=== PATIENT | female | born 1970 | race Caucasian/White ===

== ENCOUNTER → 2017-06-10 09:25 | Outpatient (CLI) | payer OTHER, SELFPAY ==
--- NOTE | 2017-06-10 09:42 | RAD_ITS ---
STUDY: X-RAY - LEFT FOOT CLINICAL: Female, 47 years old. Left foot pain TECHNIQUE: 3 view(s) of the foot. COMPARISON: None. FINDINGS: There is a small plantar calcaneal spur. Normal visualized subtalar, talonavicular, calcaneocuboid, tarsal and tarsometatarsal articulations. Normal metatarsi. Normal metatarsophalangeal joint of the great toe. Normal tibial and fibular sesamoid bones. Normal interphalangeal joint of the great toe. Normal phalanges of the great toe. Normal second through fifth metatarsophalangeal joints. Normal interphalangeal joints and phalanges of the lesser toes. The soft tissue structures are unremarkable. RAD/Foot min 3 Views IMPRESSION: Normal x-ray examination of the foot. Electronically Signed: Juan Antonio Moncada DO at 16:42 EDT Tel , Service support ,
== END ==
PROVIDERS: Family Provider Family Medicine; PCP Family Medicine; Visit Provider Physician Assistant
DX: M79.672 Pain in left foot (principal); S99.922A Unspecified injury of left foot, initial encounter
CPT/HCPCS: 73630

== ENCOUNTER → 2017-06-23 13:09 | Outpatient (CLI) | payer OTHER, SELFPAY ==
--- NOTE | 2017-06-23 13:12 | RAD_ITS ---
STUDY: X-RAY - LEFT FOOT CLINICAL: Female, 47 years old. 2 week history of dorsal foot pain. TECHNIQUE: 3 view(s) of the foot. COMPARISON: None. FINDINGS: There is a plantar calcaneal spur. Normal visualized subtalar, talonavicular, calcaneocuboid, tarsal and tarsometatarsal articulations. Normal metatarsi. Normal metatarsophalangeal joint of the great toe. Normal tibial and fibular sesamoid bones. Normal interphalangeal joint of the great toe. Normal phalanges of the great toe. Normal second through fifth metatarsophalangeal joints. Normal interphalangeal joints and phalanges of the lesser toes. The soft tissue structures are unremarkable. RAD/Foot min 3 Views IMPRESSION: Plantar spur. Electronically Signed: Taiwo Abernathy MD at 15:37 EDT Tel [phone], Service support ,
== END ==
PROVIDERS: Family Provider Family Medicine; PCP Family Medicine; Visit Provider Physician Assistant
DX: M79.672 Pain in left foot (principal)
CPT/HCPCS: 73630

== ENCOUNTER → 2017-07-29 10:59 | Outpatient (CLI) | payer OTHER, SELFPAY ==
--- NOTE | 2017-07-29 11:04 | MRI_ITS ---
STUDY: MRI LEFT FOOT REASON FOR EXAM: Pain for 8 weeks, no specific injury, possible first or second metatarsal stress fracture. TECHNIQUE: Standardized fat and water weighted pulse sequences were obtained in all 3 orthogonal planes. COMPARISON: Radiographs 06/23/2017. FINDINGS: Normal visualized talonavicular articulation. Normal navicular-cuneiform articulations. Normal intercuneiform articulations. Normal first tarsometatarsal articulation. Normal Lisfranc ligament. Normal second and third tarsometatarsal articulations. Normal cuboid fourth and cuboid fifth tarsometatarsal articulation. Normal first through fifth metatarsi. Normal metatarsophalangeal joints. Normal phalanges and interphalangeal joints. Normal extensor hallucis longus tendon. Normal extensor digitorum longus tendons. Normal peroneus longus tendon distal insertion. Normal peroneus brevis tendon distal insertion. Normal intrinsic muscles of the visualized mid and forefoot region. Normal intermetatarsal spaces. There is mild edema in the dorsal lateral subcutis adipose space of the proximal forefoot. MRI/Lower Ext/No Jt/w/o IMPRESSION: Mild edema in the dorsal lateral subcutis adipose space. No demonstrated metatarsal stress fracture. Electronically Signed: Milan Al MD at 12:22 EDT Tel , Service support ,
== END ==
PROVIDERS: Family Provider Family Medicine; PCP Family Medicine; Visit Provider Orthopaedic Surgery
DX: M84.34 Stress fracture, hand and fingers (principal); M89.8X7 Other specified disorders of bone, ankle and foot
CPT/HCPCS: 73718

== ENCOUNTER → 2017-09-14 09:33 | Outpatient (CLI) | payer OTHER, SELFPAY ==
[2017-09-14 12:25] LABS: Absolute Lymphocyte Count 1.61 X10^3/ul (0.83-4.51); Basophil# 0.03 X10^3/uL; Basophil% 0.3 % (0-1); Eosinophil# 0.03 X10^3/uL; Eosinophils% 0.3 % (0-5); Hematocrit 37.5 % (37-47); Hemoglobin 12.3 g/dl (12.0-15.0); Lymphocyte # 1.61 X10^3/ul (4.0); Lymphocyte % 15.6 % (19-41); Mean Corp Hgb Conc 32.8 g/gl (32-36); Mean Corpuscular Volume 94.5 fL (81-99); Mean Platelet Vol. 10.7 fl (6.2-12.0); Monocyte# 0.65 X10^3/uL; Monocyte% 6.3 % (0-10); Neutrophil # 7.96 X10^3/uL (2.7-7.7); Neutrophil % 77.4 % (47-70); Platelet Count 318 K/mm3 (150-450); RBC Distribution Width CV 14.4 % (11.6-14.6); Red Blood Count 3.97 M/mm3 (4.2-5.4); White Blood Count 10.3 K/mm3 (4.4-11.0)
[2017-09-14 12:29] LABS: POSITIVE COUNT NO; POSITIVE DIFFERENTIAL NO; POSITIVE MORPHOLOGY NO
[2017-09-14 12:31] LABS: Erythrocyte Sedimentation Rate 25 mm/hr (0-20)
[2017-09-14 12:43] LABS: Hemoglobin A1c 5.3 % (4.2-6.3)
[2017-09-14 12:45] LABS: Vitamin D,25 Hydroxy 25.2 ng/mL (29.95-100.01)
[2017-09-14 12:48] LABS: ALB/GLOB Ratio 0.9 RATIO (0.9-2.4); AST(SGOT) 27 U/L (15-37); Alanine Aminotransfer ALT/SGPT 23 U/L (13-56); Albumin, Serum 3.7 g/dL (3.2-5.0); Alkaline Phosphatase 102 U/L (45-117); Anion Gap 7 (5-15); BUN 14 mg/dL (7-18); BUN/Creat Ratio 16.7 RATIO (10-20); CRP 3.02 mg/L (0.0-3.0); Calcium,Total 8.9 mg/dL (8.5-10.1); Chloride 103 mmol/L (98-107); Creatinine, Serum 0.84 mg/dL (0.55-1.02); EST Glomerular Filtration Rate 78 mL/min (>60); Est Glom Filt Rate - Afr Amer 94 mL/min (>60); Free T3 2.1 pg/mL (2.18-3.98); Globulin 4.1 g/dL (2.2-4.2); Glucose 79 mg/dL (74-106); Potassium 4.2 mmol/L (3.5-5.1); Protein, Total 7.8 g/dL (6.4-8.2); Rheumatoid Factor < 10.0 IU/mL (<15); Sodium Level 138 mmol/L (136-145); T4 Free Direct 0.98 ng/dL (0.76-1.46); T4 Total, Thyroxin 9.1 ug/dL (4.8-13.9); Thyroid Stim Hormone (TSH) 3.24 uIU/mL (0.358-3.74)
[2017-09-14 12:58] LABS: PTHIN 42.2 pg/mL (18.4-80.1)
[2017-09-15 14:07] LABS: Anti-Centromere B Ab <0.2 AI (0.0-0.9); Anti-Chromatin <0.2 AI (0.0-0.9); Anti-Jo <0.2 AI (0.0-0.9); Anti-Scleroderma-70 AB <0.2 AI (0.0-0.9); Anti-ribosomal P Antibodies <0.2 AI (0.0-0.9); RNP Ab 0.4 AI (0.0-0.9); SJOGREN'S Anti-SS-A test < 0.2 AI (0.0-0.9); SJOGREN'S Anti-SS-B test < 0.2 AI (0.0-0.9); Smith Ab <0.2 AI (0.0-0.9); Smith/RNP Ab <0.2 AI (0.0-0.9)
[2017-09-15 16:08] LABS: Anti-dsDNA Ab <1 IU/mL (0-9)
[2017-09-19 11:27] LABS: Anti-Thyroglobulin AB < 1.0 IU/mL (0.0-0.9); CCP IgG Antibodies 7 units (0-19); Thyroglobulin, Serum Qt. 11.9 ng/mL (1.5-38.5); Thyroid Peroxidase AB 78 IU/mL (0-34)
== END ==
PROVIDERS: Family Provider Family Medicine; PCP Family Medicine; Visit Provider Family Medicine
DX: E04.1 Nontoxic single thyroid nodule (principal); M79.7 Fibromyalgia; M25.50 Pain in unspecified joint
CPT/HCPCS: 36415; 80053; 82306; 83036; 83970; 84432; 84436; 84439; 84443; 84481; 85025; 85652; 86038; 86140; 86200; 86225; 86235; 86376; 86431; 86800

== ENCOUNTER → 2017-09-19 10:14 | Outpatient (CLI) | payer OTHER, SELFPAY | PROVIDERS: Family Provider Family Medicine; PCP Family Medicine; Visit Provider Family Medicine | DX: E04.1 Nontoxic single thyroid nodule (principal) | CPT/HCPCS: 76536 ==

== ENCOUNTER → 2018-07-18 | Outpatient (CLI) | payer OTHER, SELFPAY ==
[2017-09-28 14:44] VITALS: BMI 31.9
--- NOTE | 2018-07-18 11:40 | RAD_ITS ---
STUDY: X-RAY - LEFT FOOT CLINICAL: Female, 48 years old. Foot pain. TECHNIQUE: 3 view(s) of the foot. COMPARISON: June 23, 2017. FINDINGS: No acute fracture, dislocation or osseous destruction. Type III accessory navicular. Plantar spur. No significant soft tissue swelling. RAD/Foot min 3 Views IMPRESSION: Left foot intact Degenerative changes, as above Electronically Signed: Patrick Valerio DO at 11:57 EDT Tel , Service support ,
[2018-07-18 14:23] LABS: Erythrocyte Sedimentation Rate 32 mm/hr (0-20)
[2018-07-18 14:25] LABS: Absolute Lymphocyte Count 1.49 X10^3/ul (0.83-4.51); Absolute Neutrophil Count 6.1 X10^3/uL (2.0-7.7); Basophil# 0.02 X10^3/uL; Basophil% 0.2 % (0-1); Eosinophil# 0.04 X10^3/uL; Eosinophils% 0.5 % (0-5); Hematocrit 35.1 % (37-47); Hemoglobin 11.5 g/dl (12.0-15.0); Lymphocyte # 1.49 X10^3/ul (4.0); Lymphocyte % 18.1 % (19-41); Mean Corp Hgb Conc 32.8 g/gl (32-36); Mean Corpuscular Hgb 30.3 pg (27.0-32.0); Mean Corpuscular Volume 92.6 fL (81-99); Mean Platelet Vol. 10.4 fl (6.2-12.0); Monocyte% 7.3 % (0-10); Neutrophil # 6.09 X10^3/uL (2.7-7.7); Neutrophil % 73.8 % (47-70); Platelet Count 307 K/mm3 (150-450); RBC Distribution Width CV 13.9 % (11.6-14.6); RBC Distribution Width SD 45.4 fl (35.1-43.9); Red Blood Count 3.79 M/mm3 (4.2-5.4); White Blood Count 8.3 K/mm3 (4.4-11.0)
[2018-07-18 14:29] LABS: POSITIVE COUNT NO; POSITIVE DIFFERENTIAL NO; POSITIVE MORPHOLOGY NO
== END | disposition home or self-care (01) ==
PROVIDERS: Family Provider Family Medicine; PCP Family Medicine; Referring Provider Nurse Practitioner Adult Health; Visit Provider Nurse Practitioner Adult Health
DX: M79.675 Pain in left toe(s) (principal); M84.375A Stress fracture, left foot, initial encounter for fracture
CPT/HCPCS: 36415; 73630; 84550; 85025; 85652

== ENCOUNTER → 2018-10-13 | Outpatient (CLI) | payer OTHER, SELFPAY ==
[2017-09-28 14:44] VITALS: BMI 31.9
--- NOTE | 2018-10-13 10:24 | RAD_ITS ---
STUDY: X-RAY - PELVIS AND RIGHT HIP REASON FOR EXAM: Female, 48 years old. Right hip pain. TECHNIQUE: 3 views of the pelvis and hip. COMPARISON: None. FINDINGS: No visible fracture. No osseous destruction. Alignment anatomic. Very little degenerative changes. IUD in the pelvis. No acute soft tissue abnormality. RAD/HIP, UNI W/ Pelvis 2-3 Views IMPRESSION: No acute osseous abnormality. Electronically Signed: Dann Love, at 19:48 EDT Tel , Service support ,
[2018-10-13 12:17] LABS: Absolute Lymphocyte Count 1.35 X10^3/uL (0.83-4.51); Basophil# 0.06 X10^3/uL; Basophil% 0.7 % (0-1); Eosinophil# 0.06 X10^3/uL; Eosinophils% 0.7 % (0-5); Hematocrit 38.2 % (37-47); Hemoglobin 12.1 g/dL (12.0-15.0); Lymphocyte # 1.35 X10^3/ul (4.0); Lymphocyte % 14.7 % (19-41); Mean Corp Hgb Conc 31.7 g/dL (32-36); Mean Corpuscular Hgb 30.6 pg (27.0-32.0); Mean Corpuscular Volume 96.7 fL (81-99); Mean Platelet Vol. 10.3 fl (6.2-12.0); Monocyte% 7.6 % (0-10); NRBC Flagged by Analyzer 0 % (0-5); Neutrophil # 6.97 X10^3/uL (2.7-7.7); Platelet Count 312 K/mm3 (150-450); RBC Distribution Width CV 13.3 % (11.6-14.6); RBC Distribution Width SD 47.8 fl (35.1-43.9); Red Blood Count 3.95 M/mm3 (4.2-5.4); White Blood Count 9.2 K/mm3 (4.4-11.0)
[2018-10-13 13:18] LABS: ALB/GLOB Ratio 0.9 RATIO (0.9-2.4); AST(SGOT) 16 U/L (15-37); Alanine Aminotransfer ALT/SGPT 20 U/L (13-56); Albumin, Serum 3.6 g/dL (3.2-5.0); Alkaline Phosphatase 98 U/L (45-117); Anion Gap 7 (5-15); BUN 15 mg/dL (7-18); BUN/Creat Ratio 17.9 RATIO (10-20); Calcium,Total 8.9 mg/dL (8.5-10.1); Chloride 104 mmol/L (98-107); Creatinine, Serum 0.84 mg/dL (0.55-1.02); EST Glomerular Filtration Rate 77 mL/min (>60); Est Glom Filt Rate - Afr Amer 93 mL/min (>60); Free T3 2.4 pg/mL (2.18-3.98); Globulin 3.8 g/dL (2.2-4.2); Glucose 87 mg/dL (74-106); Potassium 3.8 mmol/L (3.5-5.1); Protein, Total 7.4 g/dL (6.4-8.2); Sodium Level 139 mmol/L (136-145); Thyroid Stim Hormone (TSH) 3.24 uIU/mL (0.358-3.74)
[2018-10-14 14:09] LABS: Thyroid Peroxidase AB 48 IU/mL (0-34)
== END | disposition home or self-care (01) ==
LOC: MTLAB 10:23
PROVIDERS: Family Provider Family Medicine; PCP Family Medicine; Referring Provider Family Medicine; Visit Provider Family Medicine
DX: E06.3 Autoimmune thyroiditis (principal); M76.01 Gluteal tendinitis, right hip
CPT/HCPCS: 36415; 73502; 80053; 84439; 84443; 84481; 85025; 86376

== ENCOUNTER → 2018-10-16 | Outpatient (CLI) | payer OTHER, SELFPAY ==
--- NOTE | 2018-10-16 14:49 | US_ITS ---
STUDY: THYROID ULTRASOUND REASON FOR EXAM: Female, 48 years old. Cricket's thyroiditis TECHNIQUE: Ultrasound evaluation of the thyroid was performed with real-time and static myers-scale imaging. COMPARISON: Previous study of 09/19/2017 FINDINGS: RIGHT LOBE: The right lobe of the thyroid gland measures 3.7 x 1.2 x 1.8 cm. There is a homogeneous echotexture. There are no demonstrated solid, cystic or complex lesions. LEFT LOBE: The left lobe of the thyroid gland measures 4.6 x 1.1 x 1.2 cm. There is a homogeneous echotexture. There are no demonstrated solid, cystic or complex lesions. ISTHMUS: The isthmus measures 3 mm there is a well-defined relatively isoechoic nodule with halo sign of the left isthmus measuring 7 x 6 x 6 mm. There is minimal internal vascularity of this nodule.. The regional lymph nodes are normal. US/Thyroid IMPRESSION: Nodule demonstrating benign characteristics of the left isthmus measuring 7 x 6 x 6 mm. Follow-up thyroid ultrasound in one year is recommended. Electronically Signed: Dann Ochoa MD at 23:52 EDT , Service support ,
== END | disposition home or self-care (01) ==
PROVIDERS: Family Provider Family Medicine; PCP Family Medicine; Referring Provider Family Medicine; Visit Provider Family Medicine
DX: E06.3 Autoimmune thyroiditis (principal)
CPT/HCPCS: 76536

== ENCOUNTER 2019-04-17 08:00 | Outpatient (RCR) | payer OTHER, SELFPAY ==
--- NOTE | 2019-04-03 14:04 | HP.PTEVAL_ITS ---
Patient's Visit Information PRATIBHA PADILLA is a 49 year old F referred to Physical Therapy by Guy Martinez MD with a diagnosis of L lateral epicondylitis. Date of Evaluation: 04/03/19 Physical Therapist: TELLO Nava - Visit Plan Frequency: 1-2x /Week Duration: 4 Weeks Plan: 1-2X/ week for 4 weeks for deep tissue for MT for the lateral epicondyle, stretching, eccentric strengthening, reduction of repetitive extension during the day, US as needed with HEP - Subjective Findings: Pt reports that her elbow has been achy for about a month and then this last week she can barely move it without really hurting. She is not sure how she got it.... The Dr pressed in a couple of places and said that she had tennis elbow and go to PT. She is R handed and it is her L elnow. She does not play tennis and she is not aware of doing any repetitive movements that would have caused it. Sitting there she has no pain. she only has pain with movement. She was given meloxicam and does not think that it helped in 3 days time and stopped it. 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 She has woken up the last 2 nights with pain and her whole arm would be numb. This morning she had tingling in her L fingers. No neck pain. More of like a sleeping feeling. - Pain L elbow pain Pain Intensity (Out of 10): 0 Pain Intensity Range: 5 Comment: with straightening her elbow or with movments - Objective L bicep MMT 4-/5 and E bicep 4+/5. L wrist ext 4-/5 and R wrist ext 4/5 B wrist flex 4/5. Palpation: tender over lateral epicondyle and wrist extensors on the L. Full supintatin and pronation without an issue - Goals Goal 1:: I HEP Goal Time Frame: 4-6 Weeks Goal 2:: Pt to have 50% reduction in pain L elbow Goal Time Frame: 4-6 Weeks Goal 3:: Pt to have no tenderness to tenderness to palpation.... Goal Time Frame: 4-6 Weeks - Rehabilitation Potential Rehabilitation Potential: Good - Anticipated Interventions Patient/Client Instruction: Educate patient on: Condition, Plan of Care For the Purpose of:: To decrease pain, To decrease swelling/inflammation, To increase ROM, To improve nutrient delivery to tissue, To improve muscle performance and motor function, To improve ability to perform ADL's, To increase tolerance to activity/condition/position, To improve performance and independence with ADL's, To decrease level of supervision to perform tasks, To improve ability of physical actions for home/community/work/leisure, To improve health of tissue, To decrease soft tissue restriction, To increase flexibility/ROM Therapeutic Exercise to Include: Strength training, Flexibilty training, Passive ROM, Active ROM For the Purpose of:: To decrease pain, To increase ROM, To improve nutrient delivery to tissue, To improve muscle performance and motor function, To improve ability to perform ADL's, To increase tolerance to activity/condition/position, To improve performance and independence with ADL's, To improve health of tissue, To decrease soft tissue restriction, To increase flexibility/ROM Manual Therapy Techniques to Include: Passive ROM, Soft tissue mobilization For the Purpose of:: To decrease pain, To decrease swelling/inflammation, To increase ROM, To improve nutrient delivery to tissue, To improve muscle performance and motor function, To improve ability to perform ADL's, To improve health of tissue, To decrease soft tissue restriction Thermo therapy (hot pack): Yes Ultrasound (thermal/non thermal): Yes Thank you for the opportunity to evaluate your patient. For Medicare and Medicare HMO plans, please review the plan of care and approve it. It will need to be FAXED BACK to us at [phone] for Medicare purposes. For Medicare only, by signing this I certify the plan of care. Please let me know if there are questions or concerns regarding this plan of car e. Physician Signature: Date:
--- NOTE | 2019-06-13 10:30 | HP.PT.NRP ---
PRATIBHA PADILLA was seen in my office for initial evaluation on 04/03/19. The following Plan of Care was established for this patient: Initial Frequency: 1-2x /Week Initial Duration: 4 Weeks Patient/Client Instruction: Educate patient on: Condition, Plan of Care For the Purpose of:: To decrease pain, To decrease swelling/inflammation, To increase ROM, To improve nutrient delivery to tissue, To improve muscle performance and motor function, To improve ability to perform ADL's, To increase tolerance to activity/condition/position, To improve performance and independence with ADL's, To decrease level of supervision to perform tasks, To improve ability of physical actions for home/community/work/leisure, To improve health of tissue, To decrease soft tissue restriction, To increase flexibility/ROM Therapeutic Exercise to Include: Strength training, Flexibilty training, Passive ROM, Active ROM For the Purpose of:: To decrease pain, To increase ROM, To improve nutrient delivery to tissue, To improve muscle performance and motor function, To improve ability to perform ADL's, To increase tolerance to activity/condition/position, To improve performance and independence with ADL's, To improve health of tissue, To decrease soft tissue restriction, To increase flexibility/ROM Manual Therapy Techniques to Include: Passive ROM, Soft tissue mobilization For the Purpose of:: To decrease pain, To decrease swelling/inflammation, To increase ROM, To improve nutrient delivery to tissue, To improve muscle performance and motor function, To improve ability to perform ADL's, To improve health of tissue, To decrease soft tissue restriction Thermo therapy (hot pack): Yes Ultrasound (thermal/non thermal): Yes This patient was last seen in our office 04/17/19. Pertinent comments regarding their Physical therapy will appear below: Pt seen for two visits of PT but neglected any further visits. I have called her since it has been 6 weeks and she states she is doing well adn does not need to return. I will disocntinue her at this point at her request. At this point I will be discontinuing this patient from physical therapy. I would be happy to see this patient again in the future if found appropriate by the physician. Thank you! Patrick Ferguson, DPT, OCS, CSCS
== END 2019-04-17 19:00 | disposition home or self-care (01) ==
LOC: PT 08:00
PROVIDERS: PCP Family Medicine; Referring Provider Family Medicine; Visit Provider Family Medicine
DX: M77.12 Lateral epicondylitis, left elbow (principal)
CPT/HCPCS: 97035; 97110; 97140; 97161

== ENCOUNTER → 2019-06-15 | Outpatient (CLI) | payer OTHER, SELFPAY ==
[2017-09-28 14:44] VITALS: BMI 31.9
[2019-06-15 10:14] LABS: Rheumatoid Factor < 10.0 IU/mL (<15)
[2019-06-18 20:10] LABS: ANTINUCLEAR ANTIBODIES DIRECT Negative (Negative)
== END | disposition home or self-care (01) ==
LOC: LABSPEC 09:50
PROVIDERS: PCP Family Medicine; Referring Provider Family Medicine; Visit Provider Family Medicine
DX: M25.50 Pain in unspecified joint (principal)
CPT/HCPCS: 86038; 86431

== ENCOUNTER → 2020-06-10 08:00 | Outpatient (CLI) | payer BC, SELFPAY ==
--- NOTE | 2020-06-10 08:01 | BI_ITS ---
MAMMOGRAPHY - BILATERAL SCREENING REASON FOR EXAM: Female, 50 years old. Routine annual screening examination. PERTINENT HISTORY: Grandmother with breast cancer. TECHNIQUE: Digital bilateral breast concepcion (3D mammographic acquisition) in the CC and MLO projections. 2-D mediolateral oblique (MLO) and craniocaudad (CC) views of both breasts were obtained. CAD: Full Field Digital Mammography with Computer Added Detection was performed. COMPARISON: Comparison is made with prior outside examination dated 10/15/2015. FINDINGS: Breast Composition: There are scattered areas of fibroglandular density. There are no dominant masses or suspicious calcifications. No other significant abnormalities are identified. There has been no significant change since the prior study. BI/SCRN MAMM (CAD)W/CONCEPCION BILAT IMPRESSION: Stable bilateral screening mammogram. Yearly follow-up mammogram recommended. (A) ASSESSMENT CATEGORY: BIRADS Category 1: Negative. A letter regarding these results will be sent to the patient by the facility within 30 days. Approximately 10% of breast cancers are not detected by mammography. A normal mammogram should not delay biopsy of a clinically suspicious abnormality. [id number] Electronically Signed: Taiwo Abernathy MD at 8:42 EDT , Service support ,
== END ==
PROVIDERS: PCP Family Medicine; Referring Provider Obstetrics & Gynecology Gynecology; Visit Provider Obstetrics & Gynecology Gynecology
DX: Z12.31 Encounter for screening mammogram for malignant neoplasm of breast (principal)
CPT/HCPCS: 77063; 77067

== ENCOUNTER → 2020-06-27 08:37 | Outpatient (CLI) | payer BC, SELFPAY ==
[2017-09-28 14:44] VITALS: BMI 31.9
[2020-06-27 10:15] LABS: Absolute Lymphocyte Count 1.25 X10^3/uL (0.83-4.51); Basophil# 0.07 X10^3/uL; Basophil% 1.2 % (0-1); Eosinophils% 1.7 % (0-5); Hematocrit 36.1 % (37-47); Hemoglobin 11.4 g/dL (12.0-15.0); Lymphocyte # 1.25 X10^3/ul (0.83-4.51); Lymphocyte % 21.4 % (19-41); Mean Corp Hgb Conc 31.6 g/dL (32-36); Mean Corpuscular Hgb 30.6 pg (27.0-32.0); Mean Corpuscular Volume 96.8 fL (81-99); Mean Platelet Vol. 10.4 fl (6.2-12.0); Monocyte# 0.44 X10^3/uL; Monocyte% 7.5 % (0-10); NRBC Flagged by Analyzer 0 % (0-5); Neutrophil # 3.95 X10^3/uL (2.7-7.7); Neutrophil % 67.9 % (47-70); Platelet Count 328 K/mm3 (150-450); RBC Distribution Width CV 13.7 % (11.6-14.6); RBC Distribution Width SD 48.8 fl (35.1-43.9); Red Blood Count 3.73 M/mm3 (4.2-5.4); White Blood Count 5.8 K/mm3 (4.4-11.0)
[2020-06-27 10:55] LABS: AST(SGOT) 14 U/L (15-37); Alanine Aminotransfer ALT/SGPT 16 U/L (13-56); Albumin, Serum 3.6 g/dL (3.2-5.0); Alkaline Phosphatase 115 U/L (45-117); Anion Gap 6 (5-15); BUN 13 mg/dL (7-18); BUN/Creat Ratio 15.7 RATIO (10-20); Calcium,Total 9.2 mg/dL (8.5-10.1); Chloride 108 mmol/L (98-107); Cholesterol 149 mg/dL (200); Creatinine, Serum 0.83 mg/dL (0.55-1.02); EST Glomerular Filtration Rate 78 mL/min (>60); Est Glom Filt Rate - Afr Amer 94 mL/min (>60); Globulin 3.5 g/dL (2.2-4.2); Glucose 95 mg/dL (74-106); High Density Lipoprotein 62 mg/dL; Potassium 4.3 mmol/L (3.5-5.1); Protein, Total 7.1 g/dL (6.4-8.2); Sodium Level 141 mmol/L (136-145); Thyroid Stim Hormone (TSH) 2.83 uIU/mL (0.358-3.74); Triglycerides 57 mg/dL; Very Low Density Lipoprotein 11 mg/dL (5-40)
== END ==
PROVIDERS: Nurse Practitioner Family; PCP Family Medicine; Referring Provider Family Medicine; Visit Provider Family Medicine
DX: Z00.00 Encounter for general adult medical examination without abnormal findings (principal)
CPT/HCPCS: 36415; 80053; 80061; 84443; 85025

== ENCOUNTER 2021-05-20 16:37 | Outpatient (CLI) | payer OTHER, SELFPAY ==
[2021-05-20 17:51] LABS: T4 Free Direct 0.93 ng/dL (0.76-1.46); Thyroid Stim Hormone (TSH) 3.73 uIU/mL (0.358-3.74)
== END 2021-05-20 23:59 | disposition home or self-care (01) ==
LOC: LAB 16:44
PROVIDERS: PCP Family Medicine; Visit Provider Nurse Practitioner Family
DX: E06.3 Autoimmune thyroiditis (principal)
CPT/HCPCS: 36415; 84439; 84443

== ENCOUNTER → 2021-06-11 | Outpatient (CLI) | payer OTHER, SELFPAY ==
--- NOTE | 2021-06-11 07:23 | BI_ITS ---
MAMMOGRAPHY - BILATERAL SCREENING REASON FOR EXAM: Female, 51 years old. Routine annual screening examination. PERTINENT HISTORY: Grandmother with breast cancer. TECHNIQUE: Digital bilateral breast concepcion (3D mammographic acquisition) in the CC and MLO projections. 2-D mediolateral oblique (MLO) and craniocaudad (CC) views of both breasts were obtained. CAD: Full Field Digital Mammography with Computer Added Detection was performed. COMPARISON: Comparison is made with prior study dated 06/10/2020. FINDINGS: Breast Composition: There are scattered areas of fibroglandular density. There are no dominant masses or suspicious calcifications. No other significant abnormalities are identified. There has been no significant change since the prior study. BI/SCRN MAMM (CAD)W/CONCEPCION BILAT IMPRESSION: Stable bilateral screening mammogram. Yearly follow-up mammogram recommended. (A) ASSESSMENT CATEGORY: BIRADS Category 1: Negative. A letter regarding these results will be sent to the patient by the facility within 30 days. Approximately 10% of breast cancers are not detected by mammography. A normal mammogram should not delay biopsy of a clinically suspicious abnormality. [id number] Electronically Signed: Taiwo Abernathy MD at 8:20 EDT ,
== END | disposition home or self-care (01) ==
LOC: OPBI 07:20
PROVIDERS: PCP Family Medicine
DX: Z12.31 Encounter for screening mammogram for malignant neoplasm of breast (principal); Z01.419 Encounter for gynecological examination (general) (routine) without abnormal findings
CPT/HCPCS: 77063; 77067

== ENCOUNTER → 2021-10-14 | Outpatient (CLI) | payer OTHER, SELFPAY ==
--- NOTE | 2021-10-14 10:45 | RAD_ITS ---
STUDY: X-RAY - PELVIS AND BILATERAL HIPS REASON FOR EXAM: Female, 51 years old. Left hip pain TECHNIQUE: AP view of the pelvis.? 2 views of the right hip, and 2 views of the left hip were obtained. COMPARISON: None. FINDINGS: There is a non-specific bowel gas pattern. Normal visualized soft tissue structures. IUD noted over the coccyx Normal bilateral iliac wings, sacroiliac joints and visualized sacrum. Normal bilateral superior and inferior pubic rami. Normal pubic symphysis. Normal bilateral ischial tuberosities. Normal visualized right femoral head. Normal right acetabulum. Normal right hip joint. Normal visualized left femoral head. Normal left acetabulum. Normal left hip joint. RAD/Hips B/L min 2 views w/ Pelvis IMPRESSION: Normal x-ray examination of the pelvis and bilateral hips. Electronically Signed: Shahram Starr MD at 11:38 EDT ,
== END | disposition home or self-care (01) ==
LOC: MTRAD 10:33
PROVIDERS: PCP Family Medicine; Referring Provider Nurse Practitioner Family; Visit Provider Nurse Practitioner Family
DX: M25.552 Pain in left hip (principal)
CPT/HCPCS: 73521

== ENCOUNTER 2021-11-13 08:00 | Outpatient (RCR) | payer OTHER, SELFPAY ==
--- NOTE | 2021-10-23 09:21 | HP.PTEVAL ---
Patient's Visit Information PRATIBHA PADILLA is a 51 year old F referred to Physical Therapy by Dr. Artis Soto DO with a diagnosis of L labral tear, flexor tendonitis.. Date of Evaluation: 10/23/21 Physical Therapist: Patrick Ferguson, DPT, OCS, CSCS - Visit Plan Frequency: 3x /Week Duration: 4-6 Weeks Plan: 3x/week for 4-6 weeks for. 1. rollout and stretch L quad and hip flexor, leg pull, hip flexiona dn IR PROM. 2. strengthen hip stabs and posterior L hip - Subjective L hip issues for a long time. Last 3 months progressively worsening. Family history of MS and RA. issues are that hip catches and painful. pain is in L groin. Previously random pain here and there and may go a year without it. Last 3 months is now daily intermittent. Worse with walking , transferring chair and randomly walking. Pain is sharp and transient but it is uncomfortable at end of day. Pain is up to 8/10 quickly with walking and lingers at 2-3/10. Sleep is not interrupted often. Sittin around alot is worse when she walks. Employed sitting and up and down alot. Basic ADLs are all OK. Hobbies include baking, stands alot and this is more problematic with pain but not limiting. Works out at [employer]:riding bike, side lunge, squats leg raise, don't hurt any worse than normal. sharp pain is 3-12 x/day without warning. - Pain R groin Pain Intensity (Out of 10): 0 Pain Intensity Range: 0, 8 - Objective Walks normal and reciprocal steps with only slight pain WB ascending today. No pain ambulating and no catches. L hip AROM and PROm WFL but end range of flexion and IR are painful pinching transiently. quad and hip flexors tight on L side vs R, B HS tightness at -30 90/90 test. Tender to palpation over L hip flexors moreso than R., SLR and hip flexion more painful on R and ext strength 3+ L and 4- R, abduction 4- B, knee flex/ext 4+ without pain. Ankle AROM and strength WFL. LB AROM WFL and no pain. + FADDIR L, - CARMELA., - scour. Seems pinching anterior hip gives her the pain, weakness in posterior hip and tightness anteriorly are problems. - Balance/Special Test Scores Lower Extremity Functional Score: 60 - Goals Goal 1:: patient frequency of pinching 1-2x/week or less. Goal Time Frame: 2-4 Weeks Goal 2:: Pt feel soreness and pain in L hip is 90% improved and manageable Goal Time Frame: 2-4 Weeks Goal 3:: I appropr HEP to manage condition Goal Time Frame: 2-4 Weeks Goal 4:: LEFSscore 72 Goal Time Frame: 2-4 Weeks - Rehabilitation Potential Physical Therapy Diagnosis: L hip pain limiting function Rehabilitation Potential: Good - Anticipated Interventions Patient/Client Instruction: Educate patient on: Condition, Plan of Care For the Purpose of:: To decrease pain, To increase ROM, To improve nutrient delivery to tissue, To improve muscle performance and motor function, To improve gait and locomotor functions Therapeutic Exercise to Include: Strength training, Flexibilty training, Passive ROM, Active ROM For the Purpose of:: To decrease pain, To improve nutrient delivery to tissue, To improve muscle performance and motor function, To increase tolerance to activity/condition/position Manual Therapy Techniques to Include: Mobilization, Soft tissue mobilization For the Purpose of:: To decrease pain, To increase ROM, To improve nutrient delivery to tissue Thank you for the opportunity to evaluate your patient. For Medicare and Medicare HMO plans, please review the plan of care and approve it. It will need to be FAXED BACK to us at [phone] for Medicare purposes. For Medicare only, by signing this I certify the plan of care. Please let me know if there are questions or concerns regarding this plan of care. Physician Signature: Date:
--- NOTE | 2021-11-13 08:41 | HP.PTDCSUM_ITS ---
It has been my pleasure to treat PRATIBHA PADILLA referred by Dr. Artis Soto DO, with the diagnosis of L labral tear, flexor tendonitis. for a total of 7 visit(s). Discharge Date: 11/13/21 Please see the following information for a summary of their discharge status. Subjective: Pt reports that her hip is much better overall. Still having discom fort (4/10) with deeper amounts of hip flexion. Normal ADL's are going pretty well. R groin Pain Intensity (Out of 10): 0 % Improvement: 75 Objective/Function: Added split squat to increase anterior hip flexibility and improve functional mobility. Tolerated well and without provocation of symptoms. Goal 1:: patient frequency of pinching 1-2x/week or less. Goal Progress: Goal Met Goal 2:: Pt feel soreness and pain in L hip is 90% improved and manageable Goal Progress: 80% Goal 3:: I appropr HEP to manage condition Goal Progress: Goal Met Goal 4:: LEFSscore 72 Goal Progress: Goal Met Plan: 3x/week for 4-6 weeks for. 1. rollout and stretch L quad and hip flexor, leg pull, hip flexion and IR PROM. 2. strengthen hip stabs and posterior L hip If there are questions or concerns regarding this patient's physical therapy, please feel free to call me at [phone]. Thank you for the referral of this patient. Sincerely, Patrick Ferguson, DPT, OCS, CSCS Balance/Gait/Functional tests - Balance/Special Test Scores Lower Extremity Functional Score: 74
== END 2021-11-13 19:00 | disposition home or self-care (01) ==
LOC: PT 08:00
PROVIDERS: PCP Family Medicine; Referring Provider Orthopaedic Surgery; Visit Provider Orthopaedic Surgery
DX: S73.192D Other sprain of left hip, subsequent encounter (principal); X58.XXXD Exposure to other specified factors, subsequent encounter; M76.899 Other specified enthesopathies of unspecified lower limb, excluding foot; M24.859 Other specific joint derangements of unspecified hip, not elsewhere classified
CPT/HCPCS: 97110; 97161; 97164

== ENCOUNTER → 2022-05-24 | Outpatient (CLI) | payer OTHER, SELFPAY ==
[2022-05-24 15:57] LABS: Follicle Stimulating Hormone 23.6 mIU/mL; Thyroid Stim Hormone (TSH) 3.11 uIU/mL (0.358-3.74)
== END | disposition home or self-care (01) ==
LOC: LAB 14:17
PROVIDERS: PCP Family Medicine; Referring Provider Obstetrics & Gynecology; Visit Provider Obstetrics & Gynecology
DX: N95.1 Menopausal and female climacteric states (principal); Z13.29 Encounter for screening for other suspected endocrine disorder
CPT/HCPCS: 36415; 82670; 83001; 84443

== ENCOUNTER → 2023-05-13 | Outpatient (CLI) | payer OTHER, SELFPAY ==
[2023-05-13 07:43] LABS: Absolute Lymphocyte Count 1.67 X10^3/uL (0.83-4.51); Absolute Neutrophil Count 4.7 X10^3/uL (2.0-7.7); Basophil# 0.05 X10^3/uL; Basophil% 0.7 % (0-1); Eosinophil# 0.14 X10^3/uL; Eosinophils% 1.9 % (0-5); Hematocrit 35.5 % (37-47); Hemoglobin 11.4 g/dL (12.0-15.0); Lymphocyte # 1.67 X10^3/ul (0.83-4.51); Lymphocyte % 22.6 % (19-41); Mean Corp Hgb Conc 32.1 g/dL (32-36); Mean Corpuscular Hgb 30.5 pg (27.0-32.0); Mean Corpuscular Volume 94.9 fL (81-99); Mean Platelet Vol. 10.5 fl (6.2-12.0); Monocyte# 0.76 X10^3/uL; Monocyte% 10.3 % (0-10); NRBC Flagged by Analyzer 0 % (0-5); Neutrophil # 4.73 X10^3/uL (2.7-7.7); Neutrophil % 64.1 % (47-70); Platelet Count 305 K/mm3 (150-450); RBC Distribution Width CV 13.9 % (11.6-14.6); Red Blood Count 3.74 M/mm3 (4.2-5.4); White Blood Count 7.4 K/mm3 (4.4-11.0)
[2023-05-13 08:48] LABS: Anion Gap 5 (5-15); BUN 17 mg/dL (7-18); BUN/Creat Ratio 18.8 RATIO (10-20); Calcium,Total 8.7 mg/dL (8.5-10.1); Chloride 108 mmol/L (98-107); Cholesterol 194 mg/dL (200); EST Glomerular Filtration Rate 70 mL/min (>60); Est Glom Filt Rate - Afr Amer 84 mL/min (>60); Glucose 93 mg/dL (74-106); High Density Lipoprotein 69 mg/dL; Potassium 3.8 mmol/L (3.5-5.1); Sodium Level 139 mmol/L (136-145); Thyroid Stim Hormone (TSH) 4.83 uIU/mL (0.358-3.74); Triglycerides 79 mg/dL; Very Low Density Lipoprotein 16 mg/dL (5-40)
== END | disposition home or self-care (01) ==
PROVIDERS: PCP Family Medicine; Referring Provider Nurse Practitioner Family; Visit Provider Nurse Practitioner Family
DX: Z13.220 Encounter for screening for lipoid disorders (principal); R53.83 Other fatigue; Z13.1 Encounter for screening for diabetes mellitus
CPT/HCPCS: 36415; 80048; 80061; 84443; 85025

== ENCOUNTER → 2023-05-19 | Outpatient (CLI) | payer OTHER, SELFPAY ==
--- NOTE | 2023-05-19 08:01 | BI_ITS ---
MAMMOGRAPHY - BILATERAL SCREENING REASON FOR EXAM: Female, 53 years old. Routine annual screening examination. PERTINENT HISTORY: Grandmother with breast cancer. TECHNIQUE: Digital bilateral breast concepcion (3D mammographic acquisition) in the CC and MLO projections. 2-D mediolateral oblique (MLO) and craniocaudad (CC) views of both breasts were obtained. CAD: Full Field Digital Mammography with Computer Added Detection was performed. COMPARISON: Comparison is made with prior study dated June 11, 2021 and June 10, 2020. FINDINGS: Breast Composition: There are scattered areas of fibroglandular density. There are no dominant masses or suspicious calcifications. Stable small benign-appearing bilateral axillary lymph nodes. No other significant abnormalities are identified. There has been no significant change since the prior study. BI/SCRN MAMM (CAD)W/CONCEPCION BILAT IMPRESSION: Stable bilateral screening mammogram. Yearly follow-up mammogram recommended. (A) ASSESSMENT CATEGORY: BIRADS Category 2: Benign. A letter regarding these results will be sent to the patient by the facility within 30 days. Approximately 10% of breast cancers are not detected by mammography. A normal mammogram should not delay biopsy of a clinically suspicious abnormality. [id number] Electronically Signed: Taiwo Abernathy MD at 9:08 EDT ,
== END | disposition home or self-care (01) ==
LOC: OPBI 08:01
PROVIDERS: PCP Family Medicine; Referring Provider Nurse Practitioner Family; Visit Provider Nurse Practitioner Family
DX: Z12.31 Encounter for screening mammogram for malignant neoplasm of breast (principal)
CPT/HCPCS: 77063; 77067

== ENCOUNTER → 2023-06-06 | Outpatient (CLI) | payer OTHER, SELFPAY ==
--- NOTE | 2023-06-06 16:32 | US_ITS ---
STUDY: THYROID ULTRASOUND REASON FOR EXAM: Female, 53 years old. History of thyroid nodule. TECHNIQUE: Ultrasound evaluation of the thyroid was performed with real-time and static myers-scale imaging. COMPARISON: Comparison is made with prior study of October 16, 2018. FINDINGS: RIGHT LOBE: The right lobe of the thyroid gland measures 3.3 cm x 1.1 cm x 1.2 cm. There is a homogeneous echotexture. There are no demonstrated solid, cystic or complex lesions. LEFT LOBE: The left lobe of the thyroid gland measures 3.9 cm x 1 cm x 0.7 cm. There is a homogeneous echotexture. There are no demonstrated solid, cystic or complex lesions. ISTHMUS: The isthmus measures 1.5 mm. Stable 6 mm x 6 mm x 5 mm hypoechoic solid nodule in the left side of the isthmus. The regional lymph nodes are normal. US/Thyroid IMPRESSION: Stable 6 mm x 6 mm x 5 mm hypoechoic solid nodule in the left side of the isthmus. Electronically Signed: Taiwo Abernathy MD at 13:44 EDT ,
== END | disposition home or self-care (01) ==
LOC: US 16:32
PROVIDERS: PCP Family Medicine; Referring Provider Nurse Practitioner Family; Visit Provider Nurse Practitioner Family
DX: E04.1 Nontoxic single thyroid nodule (principal)
CPT/HCPCS: 76536

== ENCOUNTER → 2023-06-07 | Outpatient (CLI) | payer OTHER, SELFPAY ==
[2023-06-07 09:55] LABS: Free T3 2.2 pg/mL (2.18-3.98); T4 Free Direct 0.95 ng/dL (0.76-1.46)
== END | disposition home or self-care (01) ==
LOC: LAB 08:01
PROVIDERS: PCP Family Medicine; Visit Provider Nurse Practitioner Family
DX: E06.3 Autoimmune thyroiditis (principal)
CPT/HCPCS: 36415; 84439; 84443; 84481

== ENCOUNTER → 2023-06-17 | Outpatient (CLI) | payer OTHER, SELFPAY ==
[2023-06-23 13:08] LABS: HPV APTIMA, High Risk Negative (Negative)
== END | disposition home or self-care (01) ==
LOC: LABSPEC 16:18
PROVIDERS: PCP Family Medicine; Referring Provider Obstetrics & Gynecology; Visit Provider Obstetrics & Gynecology
DX: Z12.4 Encounter for screening for malignant neoplasm of cervix (principal)
CPT/HCPCS: 87624; 88175; G0145

== ENCOUNTER → 2023-07-16 | Outpatient (CLI) | payer OTHER, SELFPAY ==
[2023-07-16 12:07] LABS: Ferritin 72 ng/mL (8-252); Free T3 2.1 pg/mL (2.18-3.98); T4 Free Direct 1.06 ng/dL (0.76-1.46); Thyroid Stim Hormone (TSH) 2.42 uIU/mL (0.358-3.74)
[2023-07-18 09:14] LABS: Vitamin B12 273 pg/mL (211-911)
== END | disposition home or self-care (01) ==
PROVIDERS: PCP Family Medicine; Referring Provider Family Medicine; Visit Provider Family Medicine
DX: D64.9 Anemia, unspecified (principal); E06.3 Autoimmune thyroiditis
CPT/HCPCS: 36415; 82607; 82728; 82746; 84439; 84443; 84481

== ENCOUNTER 2023-08-23 13:06 | Emergency (ER) | payer OTHER, SELFPAY ==
[2023-08-23 13:06] VITALS: BP 160/102; PULSE 99; RESP 18; TEMP 36.2; O2SAT 99; BMI 34.4
--- NOTE | 2023-08-23 14:14 | EDS_ITS ---
HPI History of Present Illness Chief Complaint: Flank Pain Informant: patient Onset/Context/Timing Onset: Yesterday Context: Gradual Onset Timing: Waxes and wanes Quality: Constant ache but sharp at times Location: Left flank and lower back Worsened by: Movement Relieved by: Nothing Narrative Narrative: Patient presents with left flank pain that began yesterday but became worse today. Patient states it is gradually gotten worse. Patient states her pain is a constant ache but is sharp at times. Patient states it is mainly over the left flank and lower back. Patient states her pain is worse with movement. Patient states nothing seems to help with the pain. Patient admits to some nausea and vomiting last evening. Patient denies any fevers or chills. Patient denies any dysuria or hematuria. [facility] Medical History (Updated 08/23/23 @ 15:[address] Patrick Maki, DO) Contraceptive management Diarrhea Contact with and (suspected) exposure to other viral communicable diseases URI (upper respiratory infection) Snapping hip syndrome Labral tear of left hip joint Hip flexor tendinitis Single thyroid nodule child Ectopic SOB (shortness of breath) Severe headache Anemia Arthritis Home Medications ?Medication ?Instructions ?Recorded ?Last Taken ?Type levonorgestrel 21 mcg/24 hr (up to 1 device intrauterine ONCE 06/10/22 Unknown History 8 years) 52 mg intrauterine device (Mirena) conjugated estrogens 0.45 mg tablet 0.45 mg PO DAILY #90 tabs 07/22/22 Unknown Rx gabapentin 300 mg capsule 300 mg PO QHS 30 days #90 caps 07/22/22 Unknown Rx conjugated estrogens 0.625 mg 0.625 mg PO DAILY #30 tabs 07/20/23 Unknown Rx tablet ciprofloxacin HCl 500 mg tablet 500 mg PO BID #14 TABLETS 08/23/23 Unknown Rx levothyroxine 25 mcg tablet 25 mcg PO DAILY 08/23/23 Unknown History levothyroxine 50 mcg tablet 50 mcg PO DAILY 08/23/23 Unknown History Allergy/AdvReac Type Severity Reaction Status Date / Time No Known Allergies Allergy Verified 08/23/23 13:07 Family History Sister Thyroid disorder Multiple sclerosis Father Multiple sclerosis Mother Rheumatoid arthritis Other Diabetes Hypertension Surgical History (Updated 08/23/23 @ 14:[address] Patrick Maki, ) Hx of laparoscopy History of tubal ligation Social History household members: spouse housing: house Smoking Status: Never smoker alcohol intake: never substance use type: does not use caffeine: Yes what type of physical activity do you participate in: other details: crossfit frequency: 1-2 times per week seatbelt use: always do you feel safe at home: Yes additional social history: [facility] ER registration - Francois ROS ROS ED Constitutional Constitutional ED: Denies chills or fever(s) Eyes Eyes: Denies blurry vision or change in vision ENT ENT ED: Denies rhinorrhea or sore throat Cardiovascular Cardiovascular: Denies chest pain or palpitations Respiratory/Chest Respiratory/Chest: Denies cough or dyspnea Gastrointestinal Gastrointestinal: Reports nausea and vomiting Genitourinary Genitourinary ED: Denies dysuria or hematuria Musculoskeletal Musculoskeletal: Reports back pain; Denies neck pain Integumentary Denies abscess or rash Neurologic Neurologic: Reports headache(s); Denies weakness Allergic/Immunologic Allergic/Immunologic ED: Denies mouth swelling or urticaria EXAM Physical Exam Const Vital Signs: 08/23/23 13:06 08/23/23 15:06 Temperature 97.2 F L Temperature Source Temporal Pulse Rate 99 76 Respiratory Rate 18 18 Blood Pressure 160/102 H 155/99 H Blood Pressure Mean 121 117 Pulse Ox 99 97 Oxygen Delivery Method Room Air Room Air Positive well nourished and well developed General Appearance ED: well developed and NAD HEENT Reports moist mucous membranes Neck supple and no JVD Resp normal respiratory effort and clear to auscultation bilaterally Cardio regular rate, regular rhythm and no murmurs GI non-distended Palpation: soft and tender LLQ; Negative for guarding or rebound tenderness present Back/Spine General Back: CVA tenderness left Neuro oriented x3, CN's II-XII intact bilaterally and no sensory deficits noted Sensorium / Orientation: alert Motor Exam: strength 5/5 throughout Psych mental status grossly normal MDM MDM MDM Narrative Medical decision making narrative: Differential diagnosis includes ureteral calculus, urinary tract infection, pyelonephritis, diverticulitis, colitis, and gastroenteritis. CT scan of the abdomen pelvis will be obtained to assess for ureteral calculus and pyelonephritis. CBC will be obtained to assess for leukocytosis and anemia. Basic metabolic profile will be obtained to assess for electrolyte abnormality and renal function. Urinalysis will be obtained to assess for urinary tract infection and hematuria. Lab Data Attestation: I reviewed the patient's lab results. Lab results narrative: CBC was reviewed and was within normal limits. Basic metabolic profile was reviewed. Creatinine was just slightly elevated at 1.04. Glucose was slightly elevated at 114. The remainder is within normal limits. Urinalysis showed a leukocyte Estrace of 500 with 25-50 white blood cells. There were 10-25 epithelial cells and 10-25 red blood cells. There is 2+ bacteria. Labs: Laboratory Results - last 24 hr 08/23/23 13:24 WBC 9.5 RBC 4.06 L Hgb 12.1 Hct 38.0 MCV 93.6 MCH 29.8 MCHC 31.8 L RDW Std Deviation 46.3 H RDW Coeff of Rody 13.5 Plt Count 331 MPV 10.9 Immature Gran % (Auto) 0.300 Neut % (Auto) 72.9 H Lymph % (Auto) 19.2 [place] % (Auto) 6.4 Eos % (Auto) 0.6 Baso % (Auto) 0.6 Absolute Neuts (auto) 6.9 Absolute Lymphs (auto) 1.83 Nucleated RBC % 0 Sodium 138 Potassium 3.9 Chloride 104 Carbon Dioxide 28.0 Anion Gap 6 BUN 15 Creatinine 1.04 H Estim Creat Clear Calc 76.76 Est GFR (MDRD) Af Amer 71 Est GFR (MDRD) Non-Af 59 L BUN/Creatinine Ratio 14.4 Glucose 114 H Calcium 9.5 Urine Color Yellow Urine Clarity Sl. Cloudy Urine pH 5.0 Ur Specific [place] 1.025 Urine Protein 30 H Urine Glucose (UA) Normal Urine Ketones Negative Urine Occult Blood 150 H Urine Nitrite Negative Urine Bilirubin Negative Urine Urobilinogen 1 H Ur Leukocyte Esterase 500 H Urine RBC 10-25 SEEN Urine WBC 25-50 SEEN Ur Squamous Epith Cells 10-25 SEEN Urine Bacteria 2+ Urine Mucus 0 SEEN Radiography Diagnostic Testing: Clinical Impression(s) from Imaging Studies Abdomen/Pelvis CT 08/23/23 14:20 IMPRESSION: IUD seen within the uterus. No obstructive uropathy is seen. Electronically Signed: Taiwo Abernathy MD at 15:14 EDT , CT scan of the abdomen pelvis was obtained. There is an IUD noted in the uterus. There is no ureteral calculus or hydronephrosis noted. This was interpreted by the radiologist was also independently reviewed by myself. Additional Tests and Interventions Additional Tests or Interventions: Urine culture was ordered. Treatment and Re-Evaluation :: Patient was given IV fluids, morphine, and Zofran. Patient was feeling better on reevaluation. Patient was advised of her findings. Patient was given a dose of Cipro here. Patient was given a prescription for Cipro. Patient was instructed to drink plenty of fluids. Patient was instructed to take Tylenol or ibuprofen as needed for pain. Patient was instructed to follow-up with her primary care physician in 5 to 7 days. Patient understood and was agreeable with the plan. All questions were answered. Discharge Plan Triage Chief Complaint: Flank Pain ED Provider: Patrick Maki Dx/Rx/DC Orders Clinical Impression: Cystitis, Fibromyalgia Instructions: ED Cystitis Female Adult Prescriptions: New ciprofloxacin HCl 500 mg tablet 500 mg PO BID Qty: 14 0RF No Action Mirena 21 mcg/24 hours (8 yrs) 52 mg intrauterine device 1 device intrauterine ONCE Rx Instructions: as a single dose conjugated estrogens 0.45 mg tablet 0.45 mg PO DAILY Qty: 90 4RF Rx Instructions: cyclically gabapentin 300 mg capsule 300 mg PO QHS 30 Days Qty: 90 4RF levothyroxine 25 mcg tablet 25 mcg PO DAILY levothyroxine 50 mcg tablet 50 mcg PO DAILY conjugated estrogens 0.625 mg tablet 0.625 mg PO DAILY Qty: 30 12RF Rx Instructions: cyclically Primary Care Provider: Patrick Kilpatrick Referrals: Patrick Kilpatrick MD [Primary Care Provider] - 5-7 Days Print Language: Bengali Disposition Disposition: Home, Self Care
--- NOTE | 2023-08-23 14:20 | CT_ITS ---
STUDY: CT ABDOMEN AND PELVIS WITHOUT CONTRAST REASON FOR EXAM: Female, 53 years old. Left flank pain RADIATION DOSAGE (If Supplied By Facility): CTDIvol = ( 18.27 ) mGy, DLP = ( 977.06 ) mGycm TECHNIQUE: Transaxial images were obtained from the dome of the diaphragm to the symphysis pubis without oral contrast, and without intravenous contrast. Sagittal and coronal images were reconstructed. Individualized dose optimization techniques were used for this CT. COMPARISON: None. FINDINGS: Minimal linear atelectasis and/or scarring at the lung bases. Coronary artery calcification. Normal liver. Normal gallbladder and extrahepatic biliary system. Normal spleen. Normal pancreas. Normal bilateral adrenal glands. Normal right kidney. Normal left kidney. There is a moderate-sized hiatal hernia. Normal small intestine. Normal colon. The appendix is visualized and appears normal. Normal abdominal aorta. Normal inferior vena cava. Normal retroperitoneum. Normal urinary bladder. IUD is seen within the uterus. There is a small umbilical hernia containing fat. There are mild degenerative changes of the visualized lumbar spine. CT/Abdomen/Pelvis without Cont IMPRESSION: IUD seen within the uterus. No obstructive uropathy is seen. Electronically Signed: Taiwo Abernathy MD at 15:14 EDT ,
[2023-08-23 14:29] LABS: Mucous, Urine 0 SEEN /hpf (<or=2+)
[2023-08-23] MEDS: Ondansetron 4 MG/2 ML Vial IV (14:34)
[2023-08-23] MEDS: 0.9% Normal Saline (1000mL) 1,000 ML 1000 ML IV (14:34)
[2023-08-23] MEDS: Morphine 4 MG/ML Syringe IV (14:34)
[2023-08-23 14:38] LABS: Absolute Lymphocyte Count 1.83 X10^3/uL (0.83-4.51); Absolute Neutrophil Count 6.9 X10^3/uL (2.0-7.7); Basophil# 0.06 X10^3/uL; Basophil% 0.6 % (0-1); Color, Urine Yellow (Yellow); Eosinophil# 0.06 X10^3/uL; Eosinophils% 0.6 % (0-5); Glucose, Dipstick Normal (Normal); Hemoglobin 12.1 g/dL (12.0-15.0); Ketone-Dipstick Negative (Negative); Leukocyte Esterase-Dipstick 500 /ul (Negative); Lymphocyte # 1.83 X10^3/ul (0.83-4.51); Lymphocyte % 19.2 % (19-41); Mean Corp Hgb Conc 31.8 g/dL (32-36); Mean Corpuscular Hgb 29.8 pg (27.0-32.0); Mean Corpuscular Volume 93.6 fL (81-99); Mean Platelet Vol. 10.9 fl (6.2-12.0); Monocyte# 0.61 X10^3/uL; Monocyte% 6.4 % (0-10); NRBC Flagged by Analyzer 0 % (0-5); Neutrophil # 6.93 X10^3/uL (2.7-7.7); Neutrophil % 72.9 % (47-70); Nitrite-Dipstick Negative (Negative); Occult Blood-Urine 150 /ul (Negative); Platelet Count 331 K/mm3 (150-450); Protein-Dipstick 30 mg/dl (Negative); RBC Distribution Width CV 13.5 % (11.6-14.6); RBC Distribution Width SD 46.3 fl (35.1-43.9); Red Blood Count 4.06 M/mm3 (4.2-5.4); Specific Gravity, Urine 1.025 (1.002-1.030); Urine Bilirubin Dipstick Negative (Negative); Urine Clarity Sl. Cloudy (Clear); Urine Urobilinogen 1 mg/dl (Normal); White Blood Count 9.5 K/mm3 (4.4-11.0)
[2023-08-23 14:45] LABS: Anion Gap 6 (5-15); BUN 15 mg/dL (7-18); BUN/Creat Ratio 14.4 RATIO (10-20); Calcium,Total 9.5 mg/dL (8.5-10.1); Chloride 104 mmol/L (98-107); Creatinine, Serum 1.04 mg/dL (0.55-1.02); EST Glomerular Filtration Rate 59 mL/min (>60); Est Glom Filt Rate - Afr Amer 71 mL/min (>60); Estimated Creatinine Clearance 76.76 ml/min; Glucose 114 mg/dL (74-106); Potassium 3.9 mmol/L (3.5-5.1); Sodium Level 138 mmol/L (136-145)
[2023-08-23 14:59] LABS: Bacteria 2+ /hpf (None Seen); Red Blood Cells-Urine 10-25 SEEN /hpf (0-5); Squamous Epithelial Cells - UA 10-25 SEEN /hpf (5-10); White Blood Cells 25-50 SEEN /hpf (0-5)
[2023-08-23 15:06] VITALS: BP 155/99; PULSE 76; RESP 18; O2SAT 97
[2023-08-23 15:55] VITALS: BP 155/99; PULSE 76; RESP 18; TEMP 36.3; O2SAT 97
[2023-08-23] MEDS: Ciprofloxacin 500 MG Tablet PO (15:58)
== END 2023-08-23 16:06 | disposition home or self-care (01) ==
PROVIDERS: Emergency Provider Emergency Medicine; PCP Family Medicine; Visit Provider Emergency Medicine
DX: N30.90 Cystitis, unspecified without hematuria (principal); M79.7 Fibromyalgia; Z79.890 Hormone replacement therapy; R51.9 Headache, unspecified; Z97.5 Presence of (intrauterine) contraceptive device
CPT/HCPCS: 74176; 80048; 81001; 85025; 96361; 96374; 96375; 99283; J7030; A4216; J2405

== ENCOUNTER 2023-11-25 08:17 | Day surgery (SDC) | payer OTHER, SELFPAY ==
[2023-11-25] VITALS (8 sets, daily range): BP systolic 96–158; BP diastolic 52–95; PULSE 57–76; RESP 14–16; TEMP 36.1–36.4; O2SAT 97–100; BMI 36.2
--- NOTE | 2023-11-25 08:02 | PCM.HP.BLA ---
History and Physical Date of Admission: 11/25/23 Intake Vital Signs 08/22/2412:06 10/17/2407:07 Height 5 ft 7 in 5 ft 7 in Weight: 225 lb 8 oz BMI 35.3 BP 135/85 H Blood Pressure Location Rt brachial Position Sitting Respiration 18 Pulse 68 Pulse Source Monitor Temp 97.2 F L Temp Source Temporal Pulse Oximetry (%) 100 Oxygen Delivery Method room air Intake Visit Reasons: UMBILICAL HERNIA/Hiatal hernia Chief Complaint: umbilical hernia/ hiatal hernia Accompanied by: Is patient in pain?: No Allergies No Known Allergies Allergy (Verified 10/17/23 08:08) Medications ?Medication ?Instructions ?Recorded ?Confirmed ?Type levonorgestrel 21 mcg/24 hr (up to 1 device intrauterine ONCE 06/10/22 10/17/23 History 8 years) 52 mg intrauterine device (Mirena) conjugated estrogens 0.45 mg tablet 0.45 mg PO DAILY #90 tabs 07/22/22 10/17/23 Rx conjugated estrogens 0.625 mg 0.625 mg PO DAILY #30 tabs 07/20/23 10/17/23 Rx tablet levothyroxine 25 mcg tablet 25 mcg PO DAILY 08/23/23 10/17/23 History levothyroxine 50 mcg tablet 50 mcg PO DAILY 08/23/23 10/17/23 History gabapentin 300 mg capsule 300 mg PO QHS 30 days #90 caps 09/23/23 10/17/23 Rx omeprazole 20 mg tablet,delayed 20 mg PO QDAY #60 tabs 10/17/23 10/17/23 Rx release PFSH Medical History (Updated 10/17/23 @ 08:07 by Ade Tate LPN) Umbilical hernia Hiatal hernia GERD (gastroesophageal reflux disease) Contraceptive management Diarrhea Contact with and (suspected) exposure to other viral communicable diseases URI (upper respiratory infection) Snapping hip syndrome Labral tear of left hip joint Hip flexor tendinitis Single thyroid nodule child Ectopic SOB (shortness of breath) Severe headache Anemia Arthritis Surgical History Hx of laparoscopy History of tubal ligation Family History Sister Thyroid disorder Multiple sclerosisFather Multiple sclerosisMother Rheumatoid arthritisOther Diabetes Hypertension Social History household members: spouse housing: house Smoking Status: Never smoker alcohol intake: never substance use type: does not use caffeine: Yes what type of physical activity do you participate in: other details: crossfit frequency: 1-2 times per week seatbelt use: always do you feel safe at home: Yes additional social history: [facility] ER registration - Francois HPI HPI HPI: Patient is a 53-year-old female here for acid reflux. She reports that it has been getting worse. She does not take anything. She reports waking up with a burning feeling in her mouth ROS General General: Yes weight change and fatigue; No appetite, colon cancer, breast cancer or weakness HEENT HEENT: No difficulty swallowing, eye injury, eye surgery, swollen glands or hoarseness Endo Endocrine: Yes thyroid disease; No diabetes mellitus, thyroid cancer, Hair loss, heat intolerance or cold intolerance Skin Skin: No rash or changing moles Musc Musculoskeletal: No back problems, arthritis, rheumatoid arthritis, gout or joint pain Cardio Cardiovascular: No murmur, pacemaker, heart disease, atrial fibrillation, high blood pressure, heart attack, heart stent, palpitations, shortness of breat with exertion or chest pain Psych Psychiatric: No depression, anxiety or hearing voices Resp Respiratory: No shortness of breath, No sleep apnea, No cough, No COPD, No asthma, No emphysema and No wheezing Gastro Gastrointestinal: Yes abdominal pain, Yes nausea or vomiting, No diarrhea, No constipation, No blood in stool, Yes acid reflux, No hemorrhoids, No ulcers, No gallbladder problem and No black,tarry stools Abhishek Hematologic: No blood thinners, No blood disorders, No bleeding, No anemia and No blood clots Neuro Neurologic: No weakness Exam Const General: cooperative Orientation: alert and oriented x3 HENMT Head: normal to inspection Neck Neck: normal visual inspection and full ROM Chest Chest palpation & inspection: normal inspection of the chest Resp Effort & Inspection: normal respiratory effort Auscultation: clear to auscultation bilaterally Cardio Rate: regular rate Rhythm: regular rhythm GI Inspection: non-distended Palpation: soft and nontender Skin General: no rashes or lesions noted Neuro General: patient alert and patient oriented x3 Extrem General: full ROM Psych Appearance: grossly normal Mental Status: mental status grossly normal Assessment and Plan Assessment and Plan (1) Umbilical hernia: Status: Acute (2) Hiatal hernia: Status: Acute Orders: Orders EGD with 48 pH probe Today Medications: New omeprazole 20 mg PO QDAY 60 tabs 0RF Plan Patient is here to discuss hiatal hernia and umbilical hernia. She is having reflux and she says is getting worse. She is not on anything except for Tums so I will start her on a PPI. I will plan for EGD with pH probe to evaluate. Her umbilical hernia is very small and I could be fixed if she decides to proceed with surgery. I will start with EGD with pH probe and I discussed this with her in detail. I explained endoscopy in detail to the patient. I explained the risks including but not limited to stroke or heart attack with anesthesia, perforation of the GI tract, bleeding, infection. I explained that any of these could necessitate further emergency surgery. The patient understands and all questions were answered sufficiently. The patient wishes to proceed with procedure. Edgardo Ulrich MD Pager: [facility] [address] [place] [address] [address] [place] [address] Office: I have examined the patient and the H&P has been reviewed. There are no clinical changes since date of exam.
--- NOTE | 2023-11-25 08:33 | PCM.PRE.AN2 ---
ASA Classification* ASA Classification ASA Classification: 2 Assessment & Plan Anesthesia* Anesthesia Assessment Anesthesia Assessment: Discussed sedation and/or anesthesia options, risks, benefits, and alternatives with patient/parents/legal guardian/POA. Questions invited. The patient/parents/legal guardian/POA seems to understand and agrees to proceed with anesthesia plan. Reviewed the physical assessment, medical history, allergy history and patient home medications list prior to surgery/procedure/anesthetic and documented any changes. Performed airway and anesthesia risk assessments. Anesthesia Type Anesthesia Type: MAC (see written pre anesthesia record for full assessment) Anesthesia Focused Assessment* Airway Assessment Mouth opens: >3 cm Mallampati Score: II Focused Labs Anesthesia Preop lab: CBC WBC 9.5 K/mm3 (4.4-11.0) 08/23/23 13:24 RBC 4.06 M/mm3 (4.2-5.4) L 08/23/23 13:24 Hgb 12.1 g/dL (12.0-15.0) 08/23/23 13:24 Hct 38.0 % (37-47) 08/23/23 13:24 Plt Count 331 K/mm3 (150-450) 08/23/23 13:24 CHEMISTRY Potassium 3.9 mmol/L (3.5-5.1) 08/23/23 13:24 Sodium 138 mmol/L (136-145) 08/23/23 13:24 BUN 15 mg/dL (7-18) 08/23/23 13:24 Creatinine 1.04 mg/dL (0.55-1.02) H 08/23/23 13:24 Glucose 114 mg/dL (74-106) H 08/23/23 13:24 TSH 2.42 uIU/mL (0.358-3.74) 07/16/23 11:06 COAG Pre-Assessment Diagnosis/Proposed Procedure Planned Operative Procedure(s): EGD PH PROBE Anesthesia History 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 When Was Last Pacemaker Check QUESTION #4 FULL TEXT: You/Your Family Experience fever (hyperthermia) with Anesthesia Last Oral Intake Last Oral intake: Last Oral Intake NPO since Meds taken in AM with sips of water? Meds patient instructed to take am of surgery PONV PONV - board certified music therapist: PONV - board certified music therapist Female Yes 11/22/23 15:34 HX of Motion Sickness No 11/22/23 15:34 HX of N/V After Surgery No 11/22/23 15:34 Non-Smoker Yes 11/22/23 15:34 Duration of Surgery greater No 11/22/23 15:34 than 60 minutes Number of Risk Factors 2 11/22/23 15:34 PONV Score Moderate Risk 11/22/23 15:34 Height & Weight Height & Weight: Anesthesia: Height & Weight Height 5 ft 7 in 10/17/23 08:07 Respiratory Assessment Respiratory Assessment - board certified music therapist: Respiratory Tract Infection Hx - board certified music therapist Hx Respiratory Tract Infection No 11/22/23 15:34 STOP Sleep Apnea STOP Sleep Apnea - board certified music therapist: STOP Sleep Apnea - board certified music therapist Hx Hypertension No 11/22/23 15:34 Hx Sleep Apnea No 11/22/23 15:34 CPAP BIPAP Do you snore loudly (louder No 11/22/23 15:34 than talking or can be heard Do you often feel tired/ No 11/22/23 15:34 fatigued/ sleepy during daytime? Has anyone observed you stop No 11/22/23 15:34 breathing during sleep? STOP Results Negative 11/22/23 15:34 QUESTION #5 FULL TEXT : Do you snore loudly (louder than talking or can be heard through closed doors)? 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 Specify any problems Hx of Preganancy in last 3 No 11/22/23 15:34 Months Nurse Filling Out Transfusion VCHRISTIN 11/22/23 15:34 & Questions: Date: 11/22/23 11/22/23 15:34 Time: 15:36 11/22/23 15:34 Patient unable to answer at this time (ie. confused, unrespo /Reproduction History /Reproductive History - board certified music therapist: /Reproductive Hx- board certified music therapist Hx Now No 11/22/23 15:34 Gestational Age (in weeks): EDC: Hx Hx Para Hx Section SAB No 11/22/23 15:34 PFSH Medical History Wears glasses Alcohol use Thyroid disease Migraine headache History of IBS Gastric reflux Non-smoker Umbilical hernia Hiatal hernia GERD (gastroesophageal reflux disease) Contraceptive management Diarrhea Contact with and (suspected) exposure to other viral communicable diseases URI (upper respiratory infection) Snapping hip syndrome Labral tear of left hip joint Hip flexor tendinitis Single thyroid nodule child Ectopic SOB (shortness of breath) Severe headache Anemia Arthritis Home Medications ?Medication ?Instructions ?Recorded ?Last Taken ?Type levonorgestrel 21 mcg/24 hr (up to 1 device intrauterine ONCE 06/10/22 Unknown History 8 years) 52 mg intrauterine device (Mirena) conjugated estrogens 0.625 mg 0.625 mg PO DAILY #30 tabs 07/20/23 Unknown Rx tablet levothyroxine 50 mcg tablet 50 mcg PO DAILY 08/23/23 11/25/23 History gabapentin 300 mg capsule 300 mg PO QHS 30 days #90 caps 09/23/23 Unknown Rx magnesium 250 mg tablet 250 mg PO DAILY 11/22/23 Unknown History selenium 50 mcg tablet 50 mcg PO DAILY 11/22/23 Unknown History vitamin B complex 1 tab PO DAILY 11/22/23 Unknown History Allergy/AdvReac Type Severity Reaction Status Date / Time No Known Allergies Allergy Verified 11/25/23 08:30 Family History Sister Thyroid disorder Multiple sclerosis Father Multiple sclerosis Mother Rheumatoid arthritis Other Diabetes Hypertension Surgical History Hx of laparoscopy History of tubal ligation Social History household members: spouse housing: house Smoking Status: Never smoker alcohol intake: never substance use type: does not use caffeine: Yes what type of physical activity do you participate in: other details: crossfit frequency: 1-2 times per week seatbelt use: always do you feel safe at home: Yes additional social history: [facility] ER registration - Francois Review of Systems (Anesthesia) ROS Narrative System reviewed and no additional complaints, except as documented.
--- NOTE | 2023-11-25 09:14 | PCM.POST.ANE ---
Anesthesia: Postop Eval I Current Vital Signs Temperature: 97.4 F Pulse Rate: 59 Blood Pressure: 96/52 Respiratory Rate: 14 Pulse Ox: 97 Oxygen Delivery Method: Room Air Assessment Airway patent: Yes Spontaneous unlabored respirations: Yes Mental status: Awake and Calm nausea: No Vomiting: No Anesthesia Complication: No Fluid Hydration Crystalloid volume administer (ml): 20 Total IV fluid infused: 20 Progress Note Anesthesia document: Postop Eval 1 completed: Yes
--- NOTE | 2023-11-25 09:56 | PCM.POSTANE2 ---
Anesthesia Postop Eval I Sum Postop Eval Completion status Anesthesia document: Postop Eval 1 completed: Yes Anesthesia Postop Eval I Summary Anesthesia Postop Eval I Summary: Anesthesia Postop Eval I: Assessment Summary Airway patent Yes 11/25/23 09:14 [email or web address] Spontaneous unlabored Yes 11/25/23 09:14 [email or web address] respirations Mental status Awake,Calm 11/25/23 09:14 [email or web address] nausea No 11/25/23 09:14 [email or web address] Vomiting No 11/25/23 09:14 [email or web address] Anesthesia Postop Eval I: Fluid Summary Crystalloid volume administer 20 11/25/23 09:14 [email or web address] (ml) Colloids volume administered ( ml) Blood Product volume administered (ml) Total IV fluid infused 20 11/25/23 09:14 [email or web address] Anesthesia Postop Eval I: Summary Notes Anesthesia Complication No 11/25/23 09:14 [email or web address] Anesthesia Complication Comment: Post-operative progress note Anesthesia: Postop Eval II Evaluation Mental status: Awake Pain Level: 0 nausea: No Vomiting: No
--- NOTE | 2023-11-28 15:27 | OP.CCLET_ITS ---
11/25/2023 Patrick Kilpatrick [address] [place] [address] Re : Upper GI endoscopy procedure for Sonal Carrion Dear Dr. Kilpatrick This procedure was performed on Saturday, November 25, 2023. My impressions and recommendations are as follows: Impressions : - Large hiatal hernia. - Normal examined duodenum. - Normal esophagus. - No specimens collected. Recommendations : - Discharge patient to home. - Resume previous diet. - Continue present medications. - Return to my office in 2 weeks. My findings are described in the full procedure note, which is enclosed. If I can be of further assistance, please feel free to contact me at Doctor phone number(s): , Work: . Sincerely, Edgardo Ulrich MD 11/25/2023 9:06:30 AM This report has been signed electronically.
--- NOTE | 2023-11-28 15:27 | OP.EGD_ITS ---
Patient Name: Sonal Carrion Procedure Date: 11/25/2023 8:48 AM Date of : 1970 Age: 53 Procedure: Upper GI endoscopy Indications: Heartburn, Gastro-esophageal reflux disease Providers: Edgardo Ulrich MD Referring MD: Edgardo Ulrich MD Medicines: Propofol per Anesthesia Patient Profile: This is a 53 year old female. Refer to note in patient chart for documentation of history and physical. Complications: No immediate complications. Estimated blood loss: Minimal. Procedure: Pre-Anesthesia Assessment: - Prior to the procedure, a History and Physical was performed, and patient medications and allergies were reviewed. The patient's tolerance of previous anesthesia was also reviewed. The risks and benefits of the procedure and the sedation options and risks were discussed with the patient. All questions were answered, and informed consent was obtained. Prior Anticoagulants: The patient has taken no anticoagulant or antiplatelet agents. After reviewing the risks and benefits, the patient was deemed in satisfactory condition to undergo the procedure. After obtaining informed consent, the endoscope was passed under direct vision. Throughout the procedure, the patient's blood pressure, pulse, and oxygen saturations were monitored continuously. The Endoscope was introduced through the mouth, and advanced to the fourth part of duodenum. The upper GI endoscopy was accomplished without difficulty. The patient tolerated the procedure well. Scope In: 8:58:44 AM Scope Out: 9:03:05 AM Total Procedure Duration Time 0 hours 4 minutes 21 seconds Findings: A large hiatal hernia was present. The examined duodenum was normal. The esophagus was normal. The FARFAN capsule with delivery system was introduced through the mouth and advanced into the esophagus, such that the FARFAN pH capsule was positioned 33 cm from the incisors, which was 6 cm proximal to the GE junction. Suction was applied to the well of the FARFAN pH capsule to suck in the adjacent mucosa of the esophagus using the external vacuum pump set at a minimum vacuum pressure of 550 mmHg for 30 seconds. The FARFAN pH capsule was then deployed by depressing the plunger on top of the handle to advance the locking pin into the mucosa, thereby attaching the capsule to the esophagus. The plunger was then rotated a quarter turn clockwise to release the capsule from the delivery system. The delivery system was then withdrawn. Endoscopy was utilized for probe placement and diagnostic evaluation. Impression: - Large hiatal hernia. - Normal examined duodenum. - Normal esophagus. - No specimens collected. Recommendation: - Discharge patient to home. - Resume previous diet. - Continue present medications. - Return to my office in 2 weeks. Procedure Code(s): --- Professional --- 58568, Esophagogastroduodenoscopy, flexible, transoral; diagnostic, including collection of specimen(s) by brushing or washing, when performed (separate procedure) Diagnosis Code(s): --- Professional --- K44.9, Diaphragmatic hernia without obstruction or gangrene R12, Heartburn K21.9, Gastro-esophageal reflux disease without esophagitis CPT copyright 2021 [employer]. All rights reserved. The codes documented in this report are preliminary and upon database consultant review may be revised to meet current compliance requirements. Edgardo Ulrich MD 11/25/2023 9:06:30 AM This report has been signed electronically. Number of Addenda: 0 Note Initiated On: 11/25/2023 8:48 AM
== END 2023-11-25 09:51 | disposition home or self-care (01) ==
LOC: EN 08:17 → AC 08:18
PROVIDERS: PCP Family Medicine; Referring Provider Family Medicine; Visit Provider Surgery
PROC: (CPT 43235; principal; 2023-11-25 08:10)
DX: K44.9 Diaphragmatic hernia without obstruction or gangrene (principal); K21.9 Gastro-esophageal reflux disease without esophagitis; K42.9 Umbilical hernia without obstruction or gangrene; E07.9 Disorder of thyroid, unspecified; Z79.899 Other long term (current) drug therapy
CPT/HCPCS: 43235; A4216; J2405

== ENCOUNTER 2023-12-30 07:56 | Day surgery (SDC) | payer OTHER, SELFPAY ==
[2023-12-30 08:10] VITALS: BP 152/91; PULSE 88; RESP 16; TEMP 36.3; O2SAT 100
[2023-12-30] MEDS: Lidocaine Jelly 2% 20 ML Syringe (URO-JET) 1 APPLIC (08:10)
== END 2023-12-30 08:46 | disposition home or self-care (01) ==
PROVIDERS: PCP Family Medicine; Referring Provider Family Medicine; Visit Provider Surgery
PROC: F00ZJWZ Instrumental Swallowing and Oral Function Assessment using Swallowing Equipment (ICD-10-PCS; CPT 43235; principal; 2023-12-30 07:55)
DX: K21.9 Gastro-esophageal reflux disease without esophagitis (principal)
CPT/HCPCS: 91010

== ENCOUNTER 2024-01-11 10:07 | Observation (INO) | payer OTHER, SELFPAY ==
--- NOTE | 2023-12-29 11:53 | EKG12_ITS ---
Test Reason : PRE OP Blood Pressure : */* mmHG Vent. Rate : 79 BPM Atrial Rate : 79 BPM P-R Int : 142 ms QRS Dur : 78 ms QT Int : 372 ms P-R-T Axes : 41 18 1 degrees QTcB Int : 426 ms Normal sinus rhythm Nonspecific T wave abnormality Abnormal ECG Confirmed by JACKIE SHORT ([id number]), sound editor ASAF BAINS ([id number]) on 12/30/2023 11:59:06 AM Referred By: Edgardo Ulrich Confirmed By: JACKIE SHORT
[2024-01-11] VITALS (15 sets, daily range): BP systolic 122–157; BP diastolic 66–94; PULSE 59–91; RESP 16–18; TEMP 36.3–37.3; O2SAT 91–98; BMI 36.1
--- NOTE | 2024-01-11 07:17 | PCM.PRE.AN2 ---
ASA Classification* ASA Classification ASA Classification: 2 Assessment & Plan Anesthesia* Anesthesia Assessment Anesthesia Assessment: Discussed sedation and/or anesthesia options, risks, benefits, and alternatives with patient/parents/legal guardian/POA. Questions invited. The patient/parents/legal guardian/POA seems to understand and agrees to proceed with anesthesia plan. Reviewed the physical assessment, medical history, allergy history and patient home medications list prior to surgery/procedure/anesthetic and documented any changes. Performed airway and anesthesia risk assessments. Anesthesia Type Anesthesia Type: General Anesthesia Focused Assessment* Airway Assessment Mouth opens: >3 cm Mallampati Score: II Focused Labs Anesthesia Preop lab: CBC WBC 9.5 K/mm3 (4.4-11.0) 08/23/23 13:24 RBC 4.06 M/mm3 (4.2-5.4) L 08/23/23 13:24 Hgb 12.1 g/dL (12.0-15.0) 08/23/23 13:24 Hct 38.0 % (37-47) 08/23/23 13:24 Plt Count 331 K/mm3 (150-450) 08/23/23 13:24 CHEMISTRY Potassium 3.9 mmol/L (3.5-5.1) 08/23/23 13:24 Sodium 138 mmol/L (136-145) 08/23/23 13:24 BUN 15 mg/dL (7-18) 08/23/23 13:24 Creatinine 1.04 mg/dL (0.55-1.02) H 08/23/23 13:24 Glucose 114 mg/dL (74-106) H 08/23/23 13:24 TSH 2.630 uIU/mL (0.358-3.740) 12/29/23 12:14 COAG Pre-Assessment Diagnosis/Proposed Procedure Planned Operative Procedure(s): LAP LATANYA FUNDOPLICATION Anesthesia History 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 When Was Last Pacemaker Check QUESTION #4 FULL TEXT: You/Your Family Experience fever (hyperthermia) with Anesthesia Last Oral Intake Last Oral intake: Last Oral Intake NPO since Meds taken in AM with sips of water? Meds patient instructed to take am of surgery PONV PONV - concrete bucket loader: PONV - concrete bucket loader Female Yes 12/28/23 11:34 HX of Motion Sickness No 12/28/23 11:34 HX of N/V After Surgery No 12/28/23 11:34 Non-Smoker Yes 12/28/23 11:34 Duration of Surgery greater Yes 12/28/23 11:34 than 60 minutes Number of Risk Factors 3 12/28/23 11:34 PONV Score Moderate Risk 12/28/23 11:34 Height & Weight Height & Weight: Anesthesia: Height & Weight Height 5 ft 7 in 01/10/24 08:16 Weight: 104.78 kg 01/10/24 08:16 Respiratory Assessment Respiratory Assessment - concrete bucket loader: Respiratory Tract Infection Hx - concrete bucket loader Hx Respiratory Tract Infection No 12/28/23 11:34 STOP Sleep Apnea STOP Sleep Apnea - concrete bucket loader: STOP Sleep Apnea - concrete bucket loader Hx Hypertension No 12/28/23 11:34 Hx Sleep Apnea No 12/28/23 11:34 CPAP BIPAP Do you snore loudly (louder No 12/28/23 11:34 than talking or can be heard Do you often feel tired/ No 12/28/23 11:34 fatigued/ sleepy during daytime? Has anyone observed you stop No 12/28/23 11:34 breathing during sleep? STOP Results Negative 12/28/23 11:34 QUESTION #5 FULL TEXT : Do you snore loudly (louder than talking or can be heard through closed doors)? 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 Specify any problems Hx of Preganancy in last 3 No 12/28/23 11:34 Months Nurse Filling Out Transfusion DSCHRIBER 12/28/23 11:34 & Questions: Date: 12/28/23 12/28/23 11:34 Time: 11:36 12/28/23 11:34 Patient unable to answer at this time (ie. confused, unrespo /Reproduction History /Reproductive History - concrete bucket loader: /Reproductive Hx- concrete bucket loader Hx Now No 12/28/23 11:34 Gestational Age (in weeks): EDC: Hx Hx Para Hx Section SAB No 12/28/23 11:34 Active Medications Active Medications: Current Medications Generic Name Dose Route Start Last Admin Trade Name Freq PRN Reason Stop Dose Admin Cefotetan Disodium 2 gm/ 100 mls @ 200 mls/hr 01/11/24 07:30 Sodium Chloride IV 01/11/24 07:59 PREOP ONE [facility] Medical History Wears glasses Alcohol use Thyroid disease Migraine headache History of IBS Gastric reflux Non-smoker Umbilical hernia Hiatal hernia GERD (gastroesophageal reflux disease) Contraceptive management Diarrhea Contact with and (suspected) exposure to other viral communicable diseases URI (upper respiratory infection) Snapping hip syndrome Labral tear of left hip joint Hip flexor tendinitis Single thyroid nodule child Ectopic SOB (shortness of breath) Anemia Arthritis Home Medications ?Medication ?Instructions ?Recorded ?Last Taken ?Type levonorgestrel (Mirena) 1 device intrauterine ONCE 06/10/22 Unknown History conjugated estrogens 0.625 mg 0.625 mg PO DAILY #30 tabs 07/20/23 Unknown Rx tablet levothyroxine 50 mcg tablet 50 mcg PO DAILY 08/23/23 11/25/23 History gabapentin 300 mg capsule 300 mg PO QHS 30 days #90 caps 09/23/23 Unknown Rx magnesium 250 mg tablet 250 mg PO DAILY 11/22/23 Unknown History selenium 50 mcg tablet 50 mcg PO DAILY 11/22/23 Unknown History vitamin B complex 1 tab PO DAILY 11/22/23 Unknown History Allergy/AdvReac Type Severity Reaction Status Date / Time No Known Allergies Allergy Verified 12/28/23 11:33 Family History Sister Thyroid disorder Multiple sclerosis Father Multiple sclerosis Mother Rheumatoid arthritis Other Diabetes Hypertension Surgical History Hx of laparoscopy History of tubal ligation Social History household members: spouse housing: house Smoking Status: Never smoker alcohol intake: never substance use type: does not use caffeine: Yes what type of physical activity do you participate in: other details: crossfit frequency: 1-2 times per week seatbelt use: always do you feel safe at home: Yes additional social history: [facility] ER registration - Francois Review of Systems (Anesthesia) ROS Narrative System reviewed and no additional complaints, except as documented.
[2024-01-11] MEDS: Cefotetan 2 GM in 0.9% Normal Saline (100mL MB+) 100 ML IV (07:25)
[2024-01-11] MEDS: Bupiv/Epi 0.25% 30 ML Vial (09:19)
--- NOTE | 2024-01-11 09:36 | PCM.POST.ANE ---
Anesthesia: Postop Eval I Current Vital Signs Temperature: 97.4 F Pulse Rate: 90 Blood Pressure: 122/66 Respiratory Rate: 18 Pulse Ox: 98 Assessment Airway patent: Yes Spontaneous unlabored respirations: Yes nausea: No Vomiting: No Anesthesia Complication: No Fluid Hydration Crystalloid volume administer (ml): 1,200 Total IV fluid infused: 1,200 Progress Note Anesthesia document: Postop Eval 1 completed: Yes
--- NOTE | 2024-01-11 10:09 | OP.PCM_ITS ---
Operative Report (Standard) Operative Information Surgery/Procedure Performed: Laparoscopic hiatal hernia repair with Cleopatra f undoplication and EGD Surgeon: Edgardo Ulrich Date of Procedure: 01/11/24 Procedure Start Time: 07:44 Procedure Stop Time: 09:29 Pre-Operative Diagnosis: Hiatal hernia and GERD Post-Operative Diagnosis: Same Select all DRAINS/GRAFTS/IMPLANTS that apply: None Type of Anesthesia: General/Regional Estimated Blood Loss: 5 Specimen collected: No Description of surgery: Patient was brought back to the operating room and general anesthesia was induced. The abdomen was prepped and draped in usual sterile fashion. A midl ine incision was made superior to the umbilicus and deepened to the fascia which was elevated and incised. A 12 mm port was placed into the abdomen and then the abdomen was insufflated to 15 mmHg. Under direct visualization a 5 mm port was placed on a right upper quadrant as well as two 5 mm ports in the left upper quadrant. Another 5 mm port was placed in the epigastric region and the port was removed and the Vanessa retractor was placed through this and lifted the left lobe of the liver and then it was secured in place. The stomach was then grasped and brought down into the abdomen. There was a sizable hiatal hernia. Dissection was started on the right crura which was skeletonized and then the hernia sac was entered and dissected free circumferentially. Once the left crura was encountered a window was made under the esophagus. Next the greater curvature was taken down at the superior portion using Enseal all the way proximally until the short gastrics which were taken down using Enseal. After the greater curvature was adequately mobilized a Ady drain was placed behind the esophagus and used for traction. Next using Enseal dissection the areolar soft tissue around the esophagus was taken down allowing for mobility of the esophagus with at least 5 cm in the of abdomen. After the esophagus was mobilized sufficiently and the vagus nerves were identified the crura was closed with 0 Surgidac interrupted sutures. Next the OG was removed and a 54 Turkmen bougie was placed into the stomach under direct visualization. Next the wrap was completed in a full Cleopatra fashion using 0 Surgidac sutures. The superiormost suture included the esophagus and the diaphragm and the suture. The wrap appeared to sit well with no tension. Next the bougie was removed and an EGD was performed. A well-lubricated endoscope was placed through the mouth and down through the esophagus and entered the stomach easily. Retroflexion showed good wrap with no bleeding. The air test was negative and there were no bubbles in the abdomen. Next the abdomen was suctioned dry and the stomach was suctioned dry and the scope was removed. Next the Vanessa liver retractor was removed. Next under direct guidance the midline fascia was closed with interrupted 0 Vicryl sutures using a Lester Willett needle. After the midline was closed the abdomen was allowed to desufflate and all the smaller ports were removed. All the incisions were injected with local anesthetic and closed with interrupted 4-0 Monocryl sutures as well as Steri-Strips and bandage. Patient was taken to PACU in stable condition and tolerated the procedure well. Surgical Findings: Hiatal hernia Processing Supervisor grinding and polishing laborer: Yes Agency Sales Director: Jasmin Kelly Tasks completed by cutting table operator first: Opening, Closing and Retracting Complications Complications: No Admit VTE Documentation VTE Mechan Device Prophylaxis: SCD's
--- NOTE | 2024-01-11 10:15 | HP.PCM_ITS ---
History and Physical Date of Admission: 01/11/24 Intake Vital Signs 11/25/2407:31 Height 5 ft 7 in Intake Visit Reasons: S/P EGD 11-24 Chief Complaint: f/u EGD with PH probe Wellhead Pumper Required: No Is patient in pain?: No Allergies No Known Allergies Allergy (Verified 12/09/23 13:02) Medications ?Medication ?Instructions ?Recorded ?Confirmed ?Type levonorgestrel 21 mcg/24 hr (up to 1 device intrauterine ONCE 06/10/22 12/09/23 History 8 years) 52 mg intrauterine device (Mirena) conjugated estrogens 0.625 mg 0.625 mg PO DAILY #30 tabs 07/20/23 12/09/23 Rx tablet levothyroxine 50 mcg tablet 50 mcg PO DAILY 08/23/23 12/09/23 History gabapentin 300 mg capsule 300 mg PO QHS 30 days #90 caps 09/23/23 12/09/23 Rx magnesium 250 mg tablet 250 mg PO DAILY 11/22/23 12/09/23 History selenium 50 mcg tablet 50 mcg PO DAILY 11/22/23 12/09/23 History vitamin B complex 1 tab PO DAILY 11/22/23 12/09/23 History Have you fallen in the past year?: No PFSH Medical History Wears glasses Alcohol use Thyroid disease Migraine headache History of IBS Gastric reflux Non-smoker Umbilical hernia Hiatal hernia GERD (gastroesophageal reflux disease) Contraceptive management Diarrhea Contact with and (suspected) exposure to other viral communicable diseases URI (upper respiratory infection) Snapping hip syndrome Labral tear of left hip joint Hip flexor tendinitis Single thyroid nodule child Ectopic SOB (shortness of breath) Severe headache Anemia Arthritis Surgical History Hx of laparoscopy History of tubal ligation Family History Sister Thyroid disorder Multiple sclerosisFather Multiple sclerosisMother Rheumatoid arthritisOther Diabetes Hypertension Social History household members: spouse housing: house Smoking Status: Never smoker alcohol intake: never substance use type: does not use caffeine: Yes what type of physical activity do you participate in: other details: crossfit frequency: 1-2 times per week seatbelt use: always do you feel safe at home: Yes additional social history: [facility] ER registration - Francois HPI HPI HPI: Patient is a 53-year-old female following up after EGD for heartburn and reflux ROS General General: Yes weight change and fatigue; No appetite, colon cancer, breast cancer or weakness HEENT HEENT: No difficulty swallowing, eye injury, eye surgery, swollen glands or hoarseness Endo Endocrine: Yes thyroid disease; No diabetes mellitus, thyroid cancer, Hair loss, heat intolerance or cold intolerance Skin Skin: No rash or changing moles Musc Musculoskeletal: No back problems, arthritis, rheumatoid arthritis, gout or join t pain Cardio Cardiovascular: No murmur, pacemaker, heart disease, atrial fibrillation, high blood pressure, heart attack, heart stent, palpitations, shortness of breat with exertion or chest pain Psych Psychiatric: No depression, anxiety or hearing voices Resp Respiratory: No shortness of breath, No sleep apnea, No cough, No COPD, No asthma, No emphysema and No wheezing Gastro Gastrointestinal: Yes abdominal pain, Yes nausea or vomiting, No diarrhea, No constipation, No blood in stool, Yes acid reflux, No hemorrhoids, No ulcers, No gallbladder problem and No black,tarry stools Abhishek Hematologic: No blood thinners, No blood disorders, No bleeding, No anemia and No blood clots Neuro Neurologic: No weakness Exam Const General: cooperative Orientation: alert and oriented x3 HENMT Head: normal to inspection Neck Neck: normal visual inspection and full ROM Chest Chest palpation & inspection: normal inspection of the chest Resp Effort & Inspection: normal respiratory effort Auscultation: clear to auscultation bilaterally Cardio Rate: regular rate Rhythm: regular rhythm GI Inspection: non-distended Palpation: soft and nontender Skin General: no rashes or lesions noted Neuro General: patient alert and patient oriented x3 Extrem General: full ROM Psych Appearance: grossly normal Mental Status: mental status grossly normal Assessment and Plan Assessment and Plan (1) GERD (gastroesophageal reflux disease): Status: Acute Qualifiers: Esophagitis presence: without esophagitis Qualified Code(s): K21.9 - Gastro-esophageal reflux disease without esophagitis Plan: The patient has severe acid reflux. I placed a pH probe and I did her EGD and she also has a DeMeester score of 34 which is significantly elevated. I reviewed the studies with her. She also has a hiatal hernia. I discussed performing hiatal hernia repair with fundoplication. Patient is very interested and would like to proceed. I will send her for manometry first. After we will schedule her for laparoscopic hiatal hernia repair with fundoplication. The manometry will determine if it will be a Cleopatra or toupet fundoplication. I discussed the risks of the procedure such as bleeding, infection, injury to other organ such as the spleen, liver or stomach or esophagus. We discussed gas bloat syndrome as well as dysphagia. Patient understands the risks and is wanting to proceed. She was given postoperative diet instructions. Edgardo Ulrich MD Pager: [facility] [address] [place] [address] [address] [place] [address] Office: I have examined the patient and the H&P has been reviewed. There are no clinical changes since date of exam.
--- NOTE | 2024-01-11 11:18 | POSTOPAN2_ITS ---
Anesthesia Postop Eval I Sum Postop Eval Completion status Anesthesia document: Postop Eval 1 completed: Yes Anesthesia Postop Eval I Summary Anesthesia Postop Eval I Summary: Anesthesia Postop Eval I: Assessment Summary Airway patent Yes 01/11/24 09:37 CREDIT ASSESSMENT ANALYST.CSIR Spontaneous unlabored Yes 01/11/24 09:37 CREDIT ASSESSMENT ANALYST.CSIR respirations Mental status nausea No 01/11/24 09:37 CREDIT ASSESSMENT ANALYST.CSIR Vomiting No 01/11/24 09:37 CREDIT ASSESSMENT ANALYST.CSIR Anesthesia Postop Eval I: Fluid Summary Crystalloid volume administer 1,200 01/11/24 09:37 CREDIT ASSESSMENT ANALYST.CSIR (ml) Colloids volume administered ( ml) Blood Product volume administered (ml) Total IV fluid infused 1,200 01/11/24 09:37 CREDIT ASSESSMENT ANALYST.CSIR Anesthesia Postop Eval I: Summary Notes Anesthesia Complication No 01/11/24 09:37 CREDIT ASSESSMENT ANALYST.CSIR Anesthesia Complication Comment: Post-operative progress note Anesthesia: Postop Eval II Evaluation Mental status: Awake Pain Level: 1 nausea: No Vomiting: No
--- NOTE | 2024-01-11 11:18 | PCM.POSTANE2 ---
Anesthesia Postop Eval I Sum Postop Eval Completion status Anesthesia document: Postop Eval 1 completed: Yes Anesthesia Postop Eval I Summary Anesthesia Postop Eval I Summary: Anesthesia Postop Eval I: Assessment Summary Airway patent Yes 01/11/24 09:37 PULLER OVER.CSIR Spontaneous unlabored Yes 01/11/24 09:37 PULLER OVER.CSIR respirations Mental status nausea No 01/11/24 09:37 PULLER OVER.CSIR Vomiting No 01/11/24 09:37 PULLER OVER.CSIR Anesthesia Postop Eval I: Fluid Summary Crystalloid volume administer 1,200 01/11/24 09:37 PULLER OVER.CSIR (ml) Colloids volume administered ( ml) Blood Product volume administered (ml) Total IV fluid infused 1,200 01/11/24 09:37 PULLER OVER.CSIR Anesthesia Postop Eval I: Summary Notes Anesthesia Complication No 01/11/24 09:37 PULLER OVER.CSIR Anesthesia Complication Comment: Post-operative progress note Anesthesia: Postop Eval II Evaluation Mental status: Awake Pain Level: 1 nausea: No Vomiting: No
[2024-01-11] MEDS: 0.9% Normal Saline (1000mL) 1,000 ML 100 ML IV ×2 (12:33→22:25)
[2024-01-11] MEDS: Ketorolac 15 MG/ML Vial IV ×2 (12:37→21:22)
[2024-01-11] MEDS: Morphine 2 MG/ML Syringe IV (15:54)
[2024-01-11] MEDS: 0.9% Saline Lock 10 ML Syringe IV ×2 (15:56→21:23)
[2024-01-12] MEDS: Morphine 2 MG/ML Syringe IV (01:42)
[2024-01-12 03:34] VITALS: BP 138/84; PULSE 86; RESP 16; TEMP 36.7; O2SAT 95
[2024-01-12 06:07] LABS: Absolute Neutrophil Count 9.7 X10^3/uL (2.0-7.7); Basophil# 0.02 X10^3/uL; Basophil% 0.2 % (0-1); Eosinophil# 0.01 X10^3/uL; Eosinophils% 0.1 % (0-5); Hematocrit 29.7 % (37-47); Hemoglobin 9.7 g/dL (12.0-15.0); Lymphocyte % 8.6 % (19-41); Mean Corp Hgb Conc 32.7 g/dL (32-36); Mean Corpuscular Hgb 30.6 pg (27.0-32.0); Mean Corpuscular Volume 93.7 fL (81-99); Mean Platelet Vol. 10.6 fl (6.2-12.0); Monocyte# 0.84 X10^3/uL; Monocyte% 7.2 % (0-10); NRBC Flagged by Analyzer 0 % (0-5); Neutrophil # 9.72 X10^3/uL (2.7-7.7); Neutrophil % 83.5 % (47-70); Platelet Count 278 K/mm3 (150-450); RBC Distribution Width CV 13.4 % (11.6-14.6); RBC Distribution Width SD 46.5 fl (35.1-43.9); Red Blood Count 3.17 M/mm3 (4.2-5.4); White Blood Count 11.6 K/mm3 (4.4-11.0)
[2024-01-12 06:46] LABS: Anion Gap 7 (5-15); BUN 13 mg/dL (7-18); BUN/Creat Ratio 17.1 RATIO (10-20); Calcium,Total 8.3 mg/dL (8.5-10.1); Chloride 111 mmol/L (98-107); Creatinine, Serum 0.76 mg/dL (0.55-1.02); EST Glomerular Filtration Rate 85 mL/min (>60); Est Glom Filt Rate - Afr Amer 102 mL/min (>60); Estimated Creatinine Clearance 107.81 ml/min; Glucose 95 mg/dL (74-106); Sodium Level 141 mmol/L (136-145)
--- NOTE | 2024-01-12 07:42 | PCM.PN.SRG ---
Subjective Subjective Patient doing well with no complaints. She is not having any reflux. Objective Data Objective Data Vital Signs: Vital Signs Temp Pulse Resp BP Pulse Ox O2 Del Method 98.1 F 86 16 138/84 H 95 Room Air 01/12/24 03:34 01/12/24 03:34 01/12/24 03:34 01/12/24 03:34 01/12/24 03:34 01/12/24 03:34 Oxygen Delivery Method Room Air Weight: 231 lb Body Mass Index (BMI) 36.1 Intake & Output: Intake and Output for Last 24 Hours 01/10/24 01/11/24 01/12/24 23:59 23:59 23:59 Intake Total 2326.67 / 2326.67 Balance 2326.67 / 2326.67 Lab / Micro Data 01/12/24 05:45 01/12/24 05:45 Labs: Laboratory Results - last 24 hr 01/12/24 05:45: WBC 11.6 H, RBC 3.17 L, Hgb 9.7 L, Hct 29.7 L, MCV 93.7, MCH 30.6, MCHC 32.7, RDW Std Deviation 46.5 H, RDW Coeff of Rody 13.4, Plt Count 278, MPV 10.6, Immature Gran % (Auto) 0.400, Neut % (Auto) 83.5 H, Lymph % (Auto) 8.6 L, [place] % (Auto) 7.2, Eos % (Auto) 0.1, Baso % (Auto) 0.2, Absolute Neuts (auto) 9.7 H, Absolute Lymphs (auto) 1.00, Nucleated RBC % 0, Sodium 141, Potassium 4.0, Chloride 111 H, Carbon Dioxide 23.0, Anion Gap 7, BUN 13, Creatinine 0.76, Estim Creat Clear Calc 107.81, Est GFR (MDRD) Af Amer 102, Est GFR (MDRD) Non-Af 85, BUN/Creatinine Ratio 17.1, Glucose 95, Calcium 8.3 L Physical Exam Const oriented x3 and no apparent distress Resp normal respiratory effort GI soft to palpation Palpation: tender epigastric Assessment & Plan Assessment/Plan (1) Hiatal hernia: PLAN: Patient doing well after hiatal hernia repair. I will start clear liquids this morning and advance to full liquids. Hopeful for discharge this afternoon. Edgardo Ulrich MD Pager: [facility] [address] [place] [address], [address] [place] [address] Office:
[2024-01-12] MEDS: Ketorolac 15 MG/ML Vial IV (07:57)
[2024-01-12] MEDS: 0.9% Saline Lock 10 ML Syringe IV (08:22)
--- NOTE | 2024-01-12 08:37 | DS.PCM_ITS ---
Providers Date of Admission: 01/11/24 Primary Care Physician: Dr. Patrick Kilpatrick MD Reason For Visit: Laparoscopic, Cleopatra Fundoplication Diagnosis Discharge Diagnosis (1) Hiatal hernia: Status: Acute Code(s): K44.9 - Diaphragmatic hernia without obstruction or gangrene Medications at Discharge Home Medications levonorgestrel (Mirena) 1 device intrauterine ONCE 06/10/22 conjugated estrogens 0.625 mg tablet 0.625 mg PO DAILY #30 tabs 07/20/23 levothyroxine 50 mcg tablet 50 mcg PO DAILY 08/23/23 gabapentin 300 mg capsule 300 mg PO QHS 30 days #90 caps 09/23/23 magnesium 250 mg tablet 250 mg PO DAILY 11/22/23 selenium 50 mcg tablet 50 mcg PO DAILY 11/22/23 vitamin B complex 1 tab PO DAILY 11/22/23 oxycodone 5 mg tablet 5 mg PO Q6H PRN pain 3 days #10 tabs 01/12/24 Hospital Course Operations - ( Laparoscopic hiatal hernia repair with Cleopatra fundoplication and EGD) Summary of Care Provided Minutes Spent on Discharge: 30 Hospital Course: Patient is a 53 y/o F who presents for an elective repair of her hiatal hernia. Dr. Ulrich performed a Laparoscopic hiatal hernia repair with Cleopatra fundoplication and EGD on 01/11/24. Patient tolerated the procedure well. Patient had an uneventful hospitalization. Upon discharge, patient denies any nausea, vomiting. She is tolerating a full liquid diet. She will be discharged to home on a full liquid diet. She notes generalized abdominal soreness, which seems to be well controlled with pain medication. She will follow-up with Dr. Ulrich in 1 week. Weight / BMI Weight Weight: 231 lb Body Mass Index (BMI) 36.1 ABG / Lab / Microbiology Data 01/12/24 05:45 01/12/24 05:45 Laboratory: Laboratory Results - last 24 hr 01/12/24 05:45: WBC 11.6 H, RBC 3.17 L, Hgb 9.7 L, Hct 29.7 L, MCV 93.7, MCH 30.6, MCHC 32.7, RDW Std Deviation 46.5 H, RDW Coeff of Rody 13.4, Plt Count 278, MPV 10.6, Immature Gran % (Auto) 0.400, Neut % (Auto) 83.5 H, Lymph % (Auto) 8.6 L, [place] % (Auto) 7.2, Eos % (Auto) 0.1, Baso % (Auto) 0.2, Absolute Neuts (auto) 9.7 H, Absolute Lymphs (auto) 1.00, Nucleated RBC % 0, Sodium 141, Potassium 4.0, Chloride 111 H, Carbon Dioxide 23.0, Anion Gap 7, BUN 13, Creatinine 0.76, Estim Creat Clear Calc 107.81, Est GFR (MDRD) Af Amer 102, Est GFR (MDRD) Non-Af 85, BUN/Creatinine Ratio 17.1, Glucose 95, Calcium 8.3 L D/C Instructions Discharge Diet: - (Full liquid diet included within the discharge instructions) Discharge Activity: May Not Drive (3-5 days or while taking narcotic pain medication) Ice area for (Minutes): 20 Lifting Restricted to (Lbs): 15 Lifting Restrictions: No lifting >15 pounds for 2 wks. No strenuous activity for 4-6 wks. Call your doctor if your incision/area has: Continuous Slow Oozing, Sudden Increased Bleeding, Increased Pain/ Swelling, Increased Redness, Foul Smelling Discharge and Swelling at the incision site Call your doctor if you observe: Fever of 101 or Higher Suture Line Care: Avoid Pulling/Pushing and Avoid Pinching/Bending Remove Dressing in: 2 days Cleanse incision/area with: Soap & Water Additional Dressing/Incision Instructions: You may remove steri-strips in 1 week DC O2, CPAP, BIPAP Needs Additional Home O2 Discharge instructions: No DC home with Oxygen: No Please Follow Up With: Edgardo Ulrich MD When: Please contact our office at [phone], option #2 to schedule a 1 week follow-up Meaningful Use Info Meaningful Use Meaningful Use Diagnoses (Choose all that apply): None applicable Ischemic Stroke Statin Dosing Therapy Reference: STATIN DOSE THERAPY REFERENCE: * Patients > 75 years receive moderate or high dose statin therapy. * Patients 75 years or YOUNGER should receive HIGH intensity statin dose unless contraindicated. You will be required to document reason for non-treatment if statin daily dose does not meet guidelines. HIGH DOSE STATIN THERAPY DAILY Atorvastatin > than or = to 40 mg Rosuvastatin > than or = to 20 mg Amlodipine + Atorvastatin > than or = to 2.5/40 mg Ezetimibe + Simvastatin 10/80 mg Simvastatin 80mg Discharge Plan Admission Admit Date/Time: 01/11/24 10:07 Primary Reason for Your Visit: Hiatal hernia repair Attending Provider: Edgardo Ulrich Primary Care Provider: Patrick Kilpatrick Instructions Additional Instructions / Restrictions: Laparoscopic Cleopatra fundoplication or Toup[place] procedure Diet ? This is outlined on a separate diet instruction sheet (see next page) Activity ? You may drive in 3-5 days but not while taking narcotic pain medication. ? I encourage walking. You may go up steps, one at a time. ? Do not swim or use hot tubs for 2 weeks. Lifting ? You may lift up to 15 pounds for 2 weeks. No strenuous exercises/activities for 4-6 weeks. Dressings/Incision ? You may shower OVER your plastic dressings ? Do NOT tub bathe for 1 week ? Leave plastic dressings on for 2 days. ? When plastic dressings are removed, you will find steri strips. It is okay to continue showering with them in place, pat them dry. ? You may remove steri-strips after 1 week. We recommend getting them soaking wet for easier removal. Medications ? Anesthesia used during surgery and pain medications may cause constipation. I recommend initiating on the day of surgery a fiber supplement like, Metamucil, Citrucel, FiberCon, Benefiber, or a generic form of these medications. 1 heaping tablespoon in water daily. You may continue to utilize any bowel regimen or oral laxatives that you routinely take. ? As long as you are not intolerant to Tylenol, acetaminophen, ibuprofen, Motrin, Advil, Aleve, or similar medications, I would recommend transitioning to these [id number] medicines as soon as possible instead of continued use of narcotic pain medication. Follow up ? You should call [facility] soon after surgery, at [phone] option 1 to make a follow up appointment for 7 days after your surgery. Diet After Cleopatra Fundoplication Surgery This diet information is for patients who have recently had Cleopatra fundoplication surgery to correct reflux disease or to repair various types of hernias, such as hiatal hernia and intrathoracic stomach. This diet may also be used for other gastrointestinal surgeries, such as Heller myotomy and repair of achalasia. The diet will help control diarrhea, excess gas and swallowing problems, which may occur after this type of surgery. Keeping Your Stomach from Stretching ?? Eat small, frequent meals (six to eight per day). This will help you consume the majority of the nutrients you need without causing your stomach to feel full or distended. ?? Drinking large amounts of fluids with meals can stretch your stomach. You may drink fluids between meals as often as you like, but limit fluids to 1/2 cup (4 fluid ounces) with meals and one cup (8 fluid ounces) with snacks. ?? Sit upright while eating and stay upright for 30 minutes after each meal. [place] can help food move through your digestive tract. Do not lie down after eating. Sit upright for 2 hours after your last meal or snack of the day. ?? Eat very slowly. Take your time when eating. ?? Take small bites and chew your food well to supercalender operator helper in swallowing and digestion. ?? Avoid crusty breads and sticky, gummy foods, such as bananas, fresh doughy breads, rolls and doughnuts. These types of foods become sticky and difficult to swallow. ?? Toasted breads tend to be better tolerated. ?? Lastly, if you eat sweets, consume them at the end of your meal to avoid a group of symptoms referred to as ?dumping syndrome?. This describes the rapid emptying of foods from the stomach to the small intestine. Sweetened beverages, candy and desserts move more rapidly and dump quickly into the intestines. This can cause symptoms of nausea, weakness, cold sweats, cramps, diarrhea and dizzy spells. Avoiding Gas producing foods/drinks ?? Avoid drinking through a straw. Do not chew gum or tobacco. These actions cause you to swallow air, which produces excess gas in your stomach. Chew with your mouth closed. ?? Avoid any foods that cause stomach gas and distention. These foods include corn, dried beans, peas, lentils, onions, broccoli, cauliflower and any food from the cabbage family. ?? Avoid carbonated drinks, alcohol, citrus and tomato products. When will I be able to eat a soft diet? After Cleopatra fundoplication surgery, your diet will be advanced slowly by your surgeon. Generally, you will be on a clear liquid diet for the first few meals. Then you will advance to the full liquid diet for a meal or two and eventually to a Cleopatra soft diet. Please be aware that each patient's tolerance to food is different. Your doctor will advance your diet depending on how well you progress after surgery. Clear Liquid Diet The first diet after surgery is the clear liquid diet. It includes the following liquids: ?? Apple juice ?? Cranberry juice ?? Grape juice ?? Chicken broth ?? Beef broth ?? Flavored gelatin (Jell-O?) ?? Decaf tea and coffee ?? Caffeinated beverages are permitted based on tolerance ?? Popsicles ?? Thai ice Carbonated drinks (sodas) are not allowed for the first six to eight weeks after surgery. After this time you can try them again in small amounts. Full Liquid Diet- DISCHARGE DIET The full liquid diet contains anything on the clear liquid diet, plus: ?? Milk, soy, rice and almond (no chocolate) ?? Cream of wheat, cream of rice, grits ?? Strained creamed soups (no tomato or broccoli) ?? Vanilla and strawberry-flavored ice cream ?? Sherbet ?? Blended, custard styled or whipped yogurt (plain or vanilla only) ?? Vanilla and butterscotch pudding (no chocolate or coconut) ?? Nutritional drinks including Ensure?, Boost?, [place] Instant Breakfast? (no chocolate-flavored) Note: Dairy products, such as milk, ice cream and pudding, may cause diarrhea in some people just after surgery. You may need to avoid milk products. If so, substitute them with lactose-free beverages, such as soy, rice, Lactaid? or almond milks. At your 1 week follow-up, Dr. Ulrich will discuss with you when to advance your diet. Discharge Orders/Prescriptions Prescriptions: New oxycodone 5 mg tablet 5 mg PO Q6H PRN (Reason: pain) 3 Days Qty: 10 0RF Continued Mirena 21 mcg/24 hours (8 yrs) 52 mg intrauterine device 1 device intrauterine ONCE Rx Instructions: as a single dose levothyroxine 50 mcg tablet 50 mcg PO DAILY vitamin B complex Tablet 1 tab PO DAILY magnesium 250 mg tablet 250 mg PO DAILY selenium 50 mcg tablet 50 mcg PO DAILY conjugated estrogens 0.625 mg tablet 0.625 mg PO DAILY Qty: 30 12RF Rx Instructions: cyclically gabapentin 300 mg capsule 300 mg PO QHS 30 Days Qty: 90 4RF Referrals / Follow Up: Edgardo Ulrich MD [Med Staff - Active Staff] - 01/18/24 (Please contact our office to schedule a 1 week follow-up with Dr. Ulrich) Patrick Kilpatrick MD [Primary Care Provider] - Disposition Disposition (needs filled in before D/C Order can be placed): Home, Self Care Charges/Coding Visit Charges Inpatient E&M: 11690 Disch Hosp (post-op; no charge)
[2024-01-12 09:00] VITALS: BP 146/78; PULSE 74; RESP 16; TEMP 37.1; O2SAT 99
--- NOTE | 2024-01-12 10:11 | CASEMGMT ---
Social Work SW met with pt to discuss advance directives.? Pt confirms she has completed a living will and health care POA naming her [facility].? Pt notified that documents are not on file at [facility] and SW requested they be brought in for scanning into the EMR.? BERNADETTE Dean
[2024-01-12 13:49] VITALS: BP 154/83; PULSE 77; RESP 16; TEMP 36.6; O2SAT 97
[2024-01-12] MEDS: oxyCODONE 5 MG Tablet PO (14:07)
[2024-01-12] MEDS: Acetaminophen 325 MG Tablet 650 MG PO (14:08)
== END 2024-01-12 15:53 | disposition home or self-care (01) ==
LOC: SDC 11:04 → MS3 11:04
PROVIDERS: Anesthesiology; Admitting Provider Surgery; PCP Family Medicine; Referring Provider Surgery; Visit Provider Surgery
PROC: (CPT 43325; principal; 2024-01-11 07:10)
DX: K44.9 Diaphragmatic hernia without obstruction or gangrene (principal); K21.9 Gastro-esophageal reflux disease without esophagitis; Z79.899 Other long term (current) drug therapy; Z79.890 Hormone replacement therapy; E07.9 Disorder of thyroid, unspecified
CPT/HCPCS: 43280; 00790; 36415; 80048; 84443; 85025; 93005; 94668; 96361; 96374; 96375; 96376; 99221; A4216; G0378; J2405

== ENCOUNTER 2024-05-11 04:57 | Emergency (ER) | payer OTHER, SELFPAY ==
[2024-05-11] VITALS (8 sets, daily range): BP systolic 131–156; BP diastolic 78–121; PULSE 78–142; RESP 16–29; TEMP 36.8–37.2; O2SAT 97–100; BMI 35.6
[2024-05-11] MEDS: Mag Hydrox/Al Hydrox/Simeth 30 ML UDC PO (05:33)
[2024-05-11] MEDS: Benzonatate 100 MG Capsule 200 MG PO (05:33)
[2024-05-11] MEDS: Lidocaine 2% Viscous15 ML UDC 15 ML PO (05:33)
[2024-05-11] MEDS: 0.9% Normal Saline (1000mL) 1,000 ML 999 ML IV (05:33)
[2024-05-11] MEDS: Lorazepam 2 MG/ML WCH Syringe 1 MG IV (05:42)
[2024-05-11 05:44] LABS: Absolute Lymphocyte Count 1.42 X10^3/uL (0.83-4.51); Absolute Neutrophil Count 14.8 X10^3/uL (2.0-7.7); Basophil# 0.06 X10^3/uL; Basophil% 0.4 % (0-1); Eosinophil# 0.08 X10^3/uL; Eosinophils% 0.5 % (0-5); Hemoglobin 11.4 g/dL (12.0-15.0); Lymphocyte # 1.42 X10^3/ul (0.83-4.51); Lymphocyte % 8.3 % (19-41); Mean Corp Hgb Conc 32.6 g/dL (32-36); Mean Corpuscular Hgb 30.7 pg (27.0-32.0); Mean Corpuscular Volume 94.3 fL (81-99); Mean Platelet Vol. 10.4 fl (6.2-12.0); Monocyte# 0.68 X10^3/uL; NRBC Flagged by Analyzer 0 % (0-5); Neutrophil % 86.3 % (47-70); Platelet Count 332 K/mm3 (150-450); RBC Distribution Width CV 13.5 % (11.6-14.6); RBC Distribution Width SD 46.5 fl (35.1-43.9); Red Blood Count 3.71 M/mm3 (4.2-5.4); White Blood Count 17.1 K/mm3 (4.4-11.0)
--- NOTE | 2024-05-11 05:55 | RAD_ITS ---
PROCEDURE: CHEST PA AND LATERAL 05/11/2024 REASON FOR EXAM: COUGH TECHNIQUE: Frontal and lateral views of the chest. COMPARISON: None available FINDINGS: Airspace opacity within the right middle lobe consistent with history of aspiration, pneumonitis. The left lung appears clear. No pleural effusion. Appearance of a small hiatal hernia. Cardiac silhouette appears within limits for size. Visualized osseous structures appear within limits. RAD/Chest PA and Lateral IMPRESSION: Airspace opacity within the right middle lobe consistent with history of aspira tion, pneumonitis. The left lung appears clear. No pleural effusion. Appearance of a small hiatal hernia. Reading Location: [id number]
[2024-05-11 06:05] LABS: Anion Gap 12 (5-15); BUN 11 mg/dL (4-19); BUN/Creat Ratio 13.4 RATIO (10-20); Calcium,Total 9.1 mg/dL (7.6-11.0); Chloride 106 mmol/L (98-108); Creatinine, Serum 0.84 mg/dL (0.70-1.20); EST Glomerular Filtration Rate 83 (>60); Estimated Creatinine Clearance 95.62 ml/min (50-250); Glucose 100 mg/dL (70-99); Potassium 3.8 mmol/L (3.3-5.1); Sodium Level 141 mmol/L (133-145)
[2024-05-11 06:11] LABS: D-Dimer Quantitative (DVT/PE) 0.61 FEU/ug/m (0.27-0.49)
--- NOTE | 2024-05-11 06:20 | CT_ITS ---
PROCEDURE: CTA CHEST W/WO CONTRAST 05/11/2024 REASON FOR EXAM: ELEVATED D-DIMER TECHNIQUE: CTA imaging of the chest, abdomen and pelvis without and with intravenous contrast. Coronal and Sagittal reconstruction series were provided. 3D, 3D post processing, 3D reconstructions, Maximum intensity projection (MIPs) Volume rendering and Shaded surface rendering was provided. CONTRAST: 100 cc Isovue 370 IV One or more dose reduction techniques were used (e.g., Automated exposure control, adjustment of the mA and/or kV according to patient size, use of iterative reconstruction technique). RADIATION DOSE SUMMARY: CTDlvol: 14.69 mGy DLP: 421.62 mGycm COMPARISON: Preceding radiograph FINDINGS: No evidence of filling defect to suggest pulmonary embolism. [place] artifact from left-sided bolus. Thoracic aorta appears within limits. Mild LAD coronary calcification noted. No CT evidence of right heart strain. No pericardial effusion. No pleural effusion. Appearance of possible previous Cleopatra fundoplication with either a small sliding hiatal hernia or patulous distal esophagus. Limited images of the upper abdomen appear within limits. No mediastinal, hilar or subcarinal adenopathy. The central airways appear patent. Consolidative change within large portion of the right middle lobe primarily involving the lateral segment, small patchy areas within the medial segment and a few small scattered patchy ground-glass nodular areas in the right lower lobe consistent with history of aspiration, pneumonitis/pneumonia. Scar at the lingula tip. Visualized osseous structures appear within limits. CT/CTA Chest W/WO Contrast IMPRESSION: No evidence of filling defect to suggest pulmonary embolism. The central airways appear patent. Consolidative change within large portion o f the right middle lobe primarily involving the lateral segment, small patchy areas within the medial segment and a few small s cattered patchy ground-glass nodular areas in the right lower lobe consistent with history of aspiration, pneumonitis/pneumonia. Appearance of possible previous Cleopatra fundoplication with either a small slidi ng hiatal hernia or patulous distal esophagus. Mild LAD coronary calcification noted. Reading Location: [id number]
--- NOTE | 2024-05-11 06:29 | EX.ED.DYSGE1 ---
HPI History of Present Illness Chief Complaint: Shortness of Breath Informant: patient and spouse/S.O. Narrative Narrative: Patient is a 54-year-old female with past medical history of hypothyroidism and GERD who underwent a Cleopatra fundoplication in January. She states that despite having this procedure she will occasionally still get bouts of acid reflux. She states she went to bed normally but then awoke with sensation of heartburn but also reported it felt like she aspirated and since that time she is having persistent cough and shortness of breath sensation. She denies any fevers or chills or known sick contacts. She denies any chest pain associated with this. However as she cannot get the cough to stop over the last few hours and has concern for aspiration she presents for evaluation. [facility] Medical History (Updated 05/12/24 @ 01:[address] Matthew Palm, ) Wears glasses Alcohol use Thyroid disease Migraine headache History of IBS Gastric reflux Non-smoker Umbilical hernia Hiatal hernia GERD (gastroesophageal reflux disease) Contraceptive management Diarrhea Contact with and (suspected) exposure to other viral communicable diseases URI (upper respiratory infection) Snapping hip syndrome Labral tear of left hip joint Hip flexor tendinitis Single thyroid nodule child Ectopic SOB (shortness of breath) Anemia Arthritis Home Medications ?Medication ?Instructions ?Recorded ?Last Taken ?Type levonorgestrel (Mirena) 1 device intrauterine ONCE 06/10/22 Unknown History conjugated estrogens 0.625 mg 0.625 mg PO DAILY #30 tabs 07/20/23 Unknown Rx tablet levothyroxine 50 mcg tablet 50 mcg PO DAILY 08/23/23 11/25/23 History gabapentin 300 mg capsule 300 mg PO QHS 30 days #90 caps 09/23/23 Unknown Rx vitamin B complex 1 tab PO DAILY PRN vitamin 11/22/23 Unknown History codeine 10 mg-guaifenesin 100 mg/5 10 ml PO 4X/DAY PRN cough 7 days 05/11/24 Unknown Rx mL oral liquid (G Tussin AC) #280 mL diazepam 5 mg tablet (Valium) 5 mg PO TID PRN muscle 05/11/24 Unknown Rx spasm/anxiety 5 days #15 tabs levofloxacin 500 mg tablet 500 mg PO DAILY #7 tabs 05/11/24 Unknown Rx Allergy/AdvReac Type Severity Reaction Status Date / Time No Known Allergies Allergy Verified 02/09/24 07:59 Family History Sister Thyroid disorder Multiple sclerosis Father Multiple sclerosis Mother Rheumatoid arthritis Other Diabetes Hypertension Surgical History Status post laparoscopic Cleopatra fundoplication Hx of laparoscopy History of tubal ligation Social History household members: spouse housing: house Smoking Status: Never smoker alcohol intake: never substance use type: does not use caffeine: Yes what type of physical activity do you participate in: other details: crossfit frequency: 1-2 times per week seatbelt use: always do you feel safe at home: Yes additional social history: [facility] ER registration - Francois ROS ROS ED Constitutional Constitutional ED: Denies chills or fever(s) Eyes Eyes: Denies blurry vision or change in vision ENT ENT ED: Reports sore throat; Denies rhinorrhea Cardiovascular Cardiovascular: Reports racing heartbeat; Denies chest pain or palpitations Respiratory/Chest Respiratory/Chest: Reports cough and dyspnea Gastrointestinal Gastrointestinal: Denies abdominal pain, diarrhea, nausea or vomiting Genitourinary Genitourinary ED: Denies dysuria Musculoskeletal Musculoskeletal: Denies myalgias Integumentary Denies rash Neurologic Neurologic: Denies headache(s) Hematologic/Lymphatic Hematologic/Lymphatic: Denies easy bleeding or easy bruising Allergic/Immunologic Allergic/Immunologic ED: Denies mouth swelling or tongue swelling EXAM Physical Exam Const Vital Signs: 05/11/24 04:58 05/11/24 05:02 05/11/24 05:04 Temperature 98.2 F 98.2 F Temperature Source Oral Oral Pulse Rate 142 H 135 H Respiratory Rate 29 H 20 H Respiratory Effort Short of Breath Respiratory Depth Normal Respiratory Pattern Tachypnea Blood Pressure 131/99 H 131/99 H Blood Pressure Mean 109 109 Pulse Ox 100 99 Oxygen Delivery Method Room Air Room Air Room Air 05/11/24 05:57 05/11/24 06:00 05/11/24 06:02 Temperature 98.2 F Temperature Source Oral Pulse Rate 109 H 107 H 108 H Respiratory Rate 23 H 23 H 21 H Respiratory Effort Respiratory Depth Respiratory Pattern Blood Pressure 156/121 H Blood Pressure Mean 132 Pulse Ox 97 97 98 Oxygen Delivery Method Room Air Room Air Room Air 05/11/24 07:00 05/11/24 08:00 Temperature 98.6 F 98.9 F Temperature Source Oral Oral Pulse Rate 114 H 78 Respiratory Rate 18 16 Respiratory Effort Respiratory Depth Respiratory Pattern Blood Pressure 152/90 H 134/78 H Blood Pressure Mean 110 96 Pulse Ox 98 98 Oxygen Delivery Method Room Air Room Air Positive well nourished and well developed General Appearance ED: well developed; Negative for pallor HEENT HEENT Narrative: No tongue or lip swelling no oral lesions no airway edema or compromise Mild cobblestoning noted in the posterior pharynx without secondary findings to suggest infection Eyes PERRL and EOMs intact bilaterally General Eye ED: Negative for scleral icterus Neck supple and no JVD Neck Narrative: No nuchal rigidity or subcutaneous emphysema noted Chest Wall palpation of chest normal Chest Narrative: No bony deformity or subcutaneous emphysema present Resp Resp Narrative: Patient is in mild respiratory distress She has tachypnea with diminished breath sounds throughout with rhonchi noted in the right lower lobe No nasal flaring or retractions or accessory muscle use. Cardio regular rhythm Rate: tachycardic and other Other Details: Tachycardic rate with regular rhythm No murmurs rubs or gallops Radial and carotid pulses are equal and symmetric Extremity normal to inspection Extremity Narrative: No asymmetric edema no pitting edema negative Homans' sign bilaterally Neuro oriented x3, CN's II-XII intact bilaterally and no sensory deficits noted Sensorium / Orientation: alert Motor Exam: strength 5/5 throughout Psych Mood & Affect: anxious Skin no rashes or lesions noted and no wounds General Skin Exam: Negative for jaundice or pallor MDM MDM MDM Narrative Medical decision making narrative: Patient arrived to the ER satting 100% on room air close in mild respiratory distress with tachypnea. She was also tachycardic. This is most likely to anxiety but she is also on Premarin and with the tachycardia reported shortness of breath and estrogen use there is concern for PE as a cause of her symptoms. Patient also could have aspiration pneumonitis or aspiration pneumonia. Patient could be short of breath secondary to acute blood loss anemia or clinically significant electrolyte abnormality. Secondary to his basic labs were obtained as well as a D-dimer and chest x-ray. The chest x-ray showed changes concerning for aspiration in the right lower lobe. Patient's white count is elevated at 17 and she does have left shift but she is afebrile and I feel this is most likely stress response. Lactic acid and procalcitonin were ordered as well. The lactic acid and procalcitonin are normal this coupled with the fact her blood pressure is normal and she is afebrile indicates that the changes seen on x-ray are most likely pneumonitis and not pneumonia. Therefore I do not feel the need for blood cultures. The patient's D-dimer was slightly elevated and with her tachycardia and hormone use I did add a CTA to rule out pulmonary embolus. CT revealed no PE and did show changes in the right lung consistent with aspiration pneumonitis versus pneumonia. At this time the patient is afebrile she is normotensive she is not hypoxic and has had improvement of symptoms with treatment in the ER. I feel this is most likely pneumonitis and this should resolve spontaneously over the next few days. Based on the fact that she does not show changes consistent with systemic infection and she is not hypoxic I do not feel there is need for admission. She will be placed on Levaquin to cover for potential developing infection but at this time with improvement of symptoms and no hypoxia she is otherwise safe for discharge History & Record Review Discussion w/independent historian: Patient and Significant other Lab Data Attestation: I reviewed the patient's lab results. Labs: Laboratory Results - last 24 hr 05/11/24 05/11/24 05:30 06:49 WBC 17.1 H RBC 3.71 L Hgb 11.4 L Hct 35.0 L MCV 94.3 MCH 30.7 MCHC 32.6 RDW Std Deviation 46.5 H RDW Coeff of Rody 13.5 Plt Count 332 MPV 10.4 Immature Gran % (Auto) 0.500 Neut % (Auto) 86.3 H Lymph % (Auto) 8.3 L Starr % (Auto) 4.0 Eos % (Auto) 0.5 Baso % (Auto) 0.4 Absolute Neuts (auto) 14.8 H Absolute Lymphs (auto) 1.42 Nucleated RBC % 0 PT 12.2 INR 0.9 APTT 25.4 D-Dimer Quant (PE/DVT) 0.61 H* Sodium 141 Potassium 3.8 Chloride 106 Carbon Dioxide 23.0 Anion Gap 12 BUN 11 Creatinine 0.84 Estim Creat Clear Calc 95.62 Est GFR (MDRD) Non-Af 83 BUN/Creatinine Ratio 13.4 Glucose 100 H Lactic Acid 1.6 Calcium 9.1 Magnesium 2.0 Procalcitonin 0.04 Radiography Diagnostic Testing: Clinical Impression(s) from Imaging Studies Chest X-Ray 05/11/24 05:55 IMPRESSION: Airspace opacity within the right middle lobe consistent with history of aspiration, pneumonitis. The left lung appears clear. No pleural effusion. Appearance of a small hiatal hernia. Reading Location: [facility] Chest CTA 05/11/24 06:20 IMPRESSION: No evidence of filling defect to suggest pulmonary embolism. The central airways appear patent. Consolidative change within large portion of the right middle lobe primarily involving the lateral segment, small patchy areas within the medial segment and a few small scattered patchy ground-glass nodular areas in the right lower lobe consistent with history of aspiration, pneumonitis/pneumonia. Appearance of possible previous Cleopatra fundoplication with either a small sliding hiatal hernia or patulous distal esophagus. Mild LAD coronary calcification noted. Reading Location: [facility] Chest x-ray as interpreted by the emergency medicine physician reveals hazy opacity in the right middle to lower lobe concerning for aspiration Discharge Plan Triage Chief Complaint: Shortness of Breath ED Provider: Matthew Palm Dx/Rx/DC Orders Clinical Impression: Aspiration into respiratory tract, GERD (gastroesophageal reflux disease), Hypothyroidism Instructions: ED Understanding Hypersensitivity Pneumonitis Prescriptions: New levofloxacin 500 mg tablet 500 mg PO DAILY Qty: 7 0RF diazepam [Valium] 5 mg tablet 5 mg PO TID PRN (Reason: muscle spasm/anxiety) 5 Days Qty: 15 0RF codeine-guaifenesin [G Tussin AC] 10-100 mg/5 mL liquid 10 ml PO 4X/DAY PRN (Reason: cough) 7 Days Qty: 280 0RF No Action Mirena 21 mcg/24 hours (8 yrs) 52 mg intrauterine device 1 device intrauterine ONCE Rx Instructions: as a single dose levothyroxine 50 mcg tablet 50 mcg PO DAILY vitamin B complex Tablet 1 tab PO DAILY PRN (Reason: vitamin) conjugated estrogens 0.625 mg tablet 0.625 mg PO DAILY Qty: 30 12RF Rx Instructions: cyclically gabapentin 300 mg capsule 300 mg PO QHS 30 Days Qty: 90 4RF Primary Care Provider: Patrick Kilpatrick Referrals: Patrick Kilpatrick MD [Primary Care Provider] - Activity Restrictions/Additional Instructions: Your CT scan revealed no signs of pulmonary embolus/blood clot. It did show changes in the right lung that are consistent with aspiration. This is most likely pneumonitis/inflammation or irritation from the aspirate but with concern for developing infection please take the antibiotic as directed to prevent this. If you develop a fever or have worsening shortness of breath or any further concerns please return to the hospital for repeat evaluation Print Language: Persian Disposition Disposition: Home, Self Care Discharge Date/Time: 05/11/24 08:34
[2024-05-11 07:21] LABS: International Normalized Ratio 0.9; Prothrombin Time (Protime)PT. 12.2 SECONDS (11.7-14.9)
[2024-05-11 07:22] LABS: Partial Thromboplast Time 25.4 Seconds (24.1-36.2)
[2024-05-11 07:31] LABS: Lactic Acid 1.6 mmol/L (0.0-2.0)
[2024-05-11 07:51] LABS: Procalcitonin 0.04 ng/mL (<=0.10)
[2024-05-11] MEDS: levoFLOXacin 750 MG Tablet PO (08:30)
== END 2024-05-11 08:34 | disposition home or self-care (01) ==
PROVIDERS: Emergency Provider Emergency Medicine; PCP Family Medicine; Visit Provider Emergency Medicine
DX: J69.0 Pneumonitis due to inhalation of food and vomit (principal); K21.9 Gastro-esophageal reflux disease without esophagitis; E03.9 Hypothyroidism, unspecified; Z79.890 Hormone replacement therapy
CPT/HCPCS: 71046; 71275; 80048; 83605; 83735; 84145; 85025; 85379; 85610; 85730; 96361; 96374; 99283; Q9967; A4216

== ENCOUNTER 2024-11-17 16:51 | Inpatient (IN) | payer SELFPAY ==
[2024-11-17] VITALS (13 sets, daily range): BP systolic 102–157; BP diastolic 68–97; PULSE 65–86; RESP 16–18; TEMP 35.9–38.2; O2SAT 97–100; BMI 34.0
--- NOTE | 2024-11-17 16:59 | EDS_ITS ---
HPI HPI - GI History of Present Illness Chief Complaint: Abd Pain Informant: patient Abdominal Pain/Flank Pain Onset: Yesterday Context: Gradual Onset Timing: Continuous Quality: Cramping Location: RLQ Worsened by: Movement Relieved by: - (Certain positions) Nausea/Vomiting/Emesis GI Symptom: Positive for Nausea; Negative for Vomiting Diarrhea/Melena/Hematochezia GI Symptom: Negative for Diarrhea, Melena or Hematochezia Associated Symptoms Associated Symptoms: Negative for Dysuria, Frequency or Hematuria Narrative Narrative: Patient presents with abdominal pain that began yesterday. Patient states it came on gradually. Patient states it is constant. Patient describes it as cramping. Patient states it is mainly over the right lower abdomen. Patient states it is worse with movement. Patient states it is better with certain positions. Patient admits to some nausea but denies any vomiting. Patient denies any diarrhea, melena, or hematochezia. Patient states she has a history of dairy allergies. Patient states she ate pizza last night with a cauliflower crust but no cheese. Patient states that there may have been some cheese in the cauliflower crust. Patient denies any fevers or chills. [facility] Medical History Wears glasses Alcohol use Thyroid disease Migraine headache History of IBS Gastric reflux Non-smoker Umbilical hernia Hiatal hernia GERD (gastroesophageal reflux disease) Contraceptive management Diarrhea Contact with and (suspected) exposure to other viral communicable diseases URI (upper respiratory infection) Snapping hip syndrome Labral tear of left hip joint Hip flexor tendinitis Single thyroid nodule child Ectopic SOB (shortness of breath) Anemia Arthritis Home Medications ?Medication ?Instructions ?Recorded ?Last Taken ?Type levonorgestrel (Mirena) 1 device intrauterine ONCE 0 06/10/22 Unknown History conjugated estrogens 0.625 mg 0.625 mg PO DAILY #30 ta bs 07/20/23 Unknown Rx tablet levothyroxine 50 mcg tablet 50 mcg PO DAILY 08/23/23 1 History gabapentin 300 mg capsule 300 mg PO QHS 30 days #90 ca ps 09/23/23 Unknown Rx vitamin B complex 1 tab PO DAILY PRN vitamin 1 Unknown History pantoprazole 40 mg tablet,delayed 40 mg PO BID #90 tab s 05/30/24 Unknown Rx release Allergy/AdvReac Type Severity Reaction Status Date / Time No Known Allergies Allergy Verified 11/17/24 16:53 Family History Sister Thyroid disorder Multiple sclerosis Father Multiple sclerosis Mother Rheumatoid arthritis Other Diabetes Hypertension Surgical History Status post laparoscopic Cleopatra fundoplication Hx of laparoscopy History of tubal ligation Social History household members: spouse housing: house Smoking Status: Never smoker alcohol intake: never substance use type: does not use caffeine: Yes what type of physical activity do you participate in: other details: crossfit frequency: 1-2 times per week seatbelt use: always do you feel safe at home: Yes additional social history: [facility] ER registration - Francois ROS ROS ED Constitutional Constitutional ED: Denies chills or fever(s) Eyes Eyes: Denies blurry vision or change in vision ENT ENT ED: Denies rhinorrhea or sore throat Cardiovascular Cardiovascular: Denies chest pain or palpitations Respiratory/Chest Respiratory/Chest: Reports cough; Denies dyspnea Gastrointestinal Gastrointestinal: Reports abdominal pain and nausea; Denies diarrhea or vomiting Genitourinary Genitourinary ED: Denies dysuria or hematuria Musculoskeletal Musculoskeletal: Reports back pain; Denies neck pain Integumentary Denies abscess or rash Neurologic Neurologic: Reports headache(s); Denies weakness Allergic/Immunologic Allergic/Immunologic ED: Denies mouth swelling or urticaria EXAM Physical Exam Const Vital Signs: 11/17/24 16:51 Temperature 96.7 F L Temperature Source Temporal Pulse Rate 86 Respiratory Rate 16 Blood Pressure 157/97 H Blood Pressure Mean 117 Pulse Ox 100 Oxygen Delivery Method Room Air Positive well nourished and well developed General Appearance ED: well developed and NAD HEENT Reports moist mucous membranes Neck supple and no JVD Resp normal respiratory effort and clear to auscultation bilaterally Cardio regular rate and regular rhythm GI non-distended Palpation: soft and tender RLQ, RUQ and suprapubic; Negative for guarding or rebound tenderness present Neuro CN's II-XII intact bilaterally, moves all extremities and no sensory deficits noted Sensorium / Orientation: alert Motor Exam: strength 5/5 throughout Psych mental status grossly normal MDM MDM MDM Narrative Medical decision making narrative: Differential diagnosis includes appendicitis, bowel obstruction, perforation, electrolyte abnormality, viral illness, and food allergy. CBC will be obtained to assess for leukocytosis and anemia. Comprehensive metabolic profile will be obtained to assess for electrolyte abnormality, renal function, and hepatic function. Serum hCG will be obtained to assess for . Urinalysis will be obtained to assess for urinary tract infection and hematuria. CT scan of the abdomen and pelvis will be obtained to assess for appendicitis, bowel obstruction, perforation, and colitis. History & Record Review Additional record(s) reviewed:: Prior outpatient record, Prior ED visit and Prior labs Lab Data Attestation: I reviewed the patient's lab results. Lab results narrative: CBC was reviewed. There is a leukocytosis of 18.9. There is a mild anemia with a hemoglobin of 11.9 and hematocrit of 36.2. Platelets were normal. Comprehensive metabolic profile was reviewed. Alkaline phosphatase was slightly elevated at 143. Serum hCG was reviewed and was negative. Urinalysis was reviewed. There is no evidence of urinary tract infection or hematuria. Labs: Laboratory Results - last 24 hr 11/17/24 11/17/24 17:40 18:05 WBC 18.9 H RBC 3.90 L Hgb 11.9 L Hct 36.2 L MCV 92.8 MCH 30.5 MCHC 32.9 RDW Std Deviation 47.8 H RDW Coeff of Rody 14.0 Plt Count 313 MPV 10.5 Immature Gran % (Auto) 0.400 Neut % (Auto) 89.1 H Lymph % (Auto) 5.1 L [place] % (Auto) 4.9 Eos % (Auto) 0.1 Baso % (Auto) 0.4 Absolute Neuts (auto) 16.9 H Absolute Lymphs (auto) 0.97 Nucleated RBC % 0 Sodium 141 Potassium 4.2 Chloride 104 Carbon Dioxide 25.6 Anion Gap 11 BUN 15 Creatinine 0.84 Estim Creat Clear Calc 93.44 Est GFR (MDRD) Non-Af 83 BUN/Creatinine Ratio 17.4 Glucose 117 H Calcium 10.2 Total Bilirubin 0.51 AST 26 ALT 13 Alkaline Phosphatase 143 H Total Protein 7.8 Albumin 4.5 Globulin 3.3 Albumin/Globulin Ratio 1.3 Serum , Qual NEGATIVE Urine Color Yellow Urine Clarity Clear Urine pH 6.0 Ur Specific Viola 1.015 Urine Protein 15 H Urine Glucose (UA) Normal Urine Ketones Negative Urine Occult Blood 150 H Urine Nitrite Negative Urine Bilirubin Negative Urine Urobilinogen Normal Ur Leukocyte Esterase 25 H Urine RBC 0-5 SEEN Urine WBC 0-5 SEEN Ur Squamous Epith Cells 0-5 SEEN Urine Bacteria RARE Urine Mucus RARE Radiography Diagnostic Testing: CT scan of the abdomen and pelvis was obtained. There is an appendicolith and dilation of the appendix with surrounding inflammatory stranding. There is no evidence of perforation or abscess. This is consistent with appendicitis. This was interpreted by the radiologist and was also independently reviewed by myself. Management Discussion w/another healthcare provider: Director Of Physical Security (Dr. Santos from general surgery) Treatment and Re-Evaluation :: Patient was given IV fluids, morphine, and Zofran. Patient was advised of her findings. Patient was started on Zosyn. Case was discussed with Dr. Santos from general surgery. He will begin to evaluate the patient and likely take the patient to the operating room for appendicitis. Patient and spouse understood and were agreeable with the plan. All questions were answered. Discharge Plan Dx/Rx/DC Orders Clinical Impression: Acute appendicitis, Leukocytosis, Status post laparoscopic Cleopatra fundoplication Disposition Disposition: Acute Care Hospital [facility]
[2024-11-17] MEDS: 0.9% Normal Saline (1000mL) 1,000 ML 999 ML IV (17:25)
[2024-11-17 17:46] LABS: Hematocrit 36.2 % (37-47); Hemoglobin 11.9 g/dL (12.0-15.0); Immature Granulocytes Count 0.080 X10^3/uL (0.0-0.0); Mean Corp Hgb Conc 32.9 g/dL (32-36); Mean Corpuscular Volume 92.8 fL (81-99); Mean Platelet Vol. 10.5 fl (6.2-12.0); NRBC Flagged by Analyzer 0 % (0-5); Platelet Count 313 K/mm3 (150-450); RBC Distribution Width CV 14.0 % (11.6-14.6); RBC Distribution Width SD 47.8 fl (35.1-43.9); Red Blood Count 3.90 M/mm3 (4.2-5.4); White Blood Count 18.9 K/mm3 (4.4-11.0)
[2024-11-17 18:02] LABS: Internal QC Validated? YES +Cl - CLEAR BKGD; Pregnancy, Serum, hCG Quali. NEGATIVE Negative; Record Kit Lot#, Serum Preg. 0000980607
--- NOTE | 2024-11-17 18:07 | CT_ITS ---
PROCEDURE: ABDOMEN/PELVIS W IV CONT ONLY 11/17/2024 REASON FOR EXAM: ABDOMINAL PAIN TECHNIQUE: Procedure Code: [id number] Modality: CT Procedure: ABDOMEN/PELVIS W IV CONT ONLY Coronal and Sagittal reconstruction series were provided. CONTRAST: Isovue 300 VOLUME: 100 mL One or more dose reduction techniques were used (e.g., Automated exposure control, adjustment of the mA and/or kV according to patient size, use of iterative reconstruction technique. RADIATION DOSE SUMMARY: CTDlvol: 20.4 mGy DLP: 1124 mGycm COMPARISON: None FINDINGS: Lung bases: Mild dependent atelectasis Liver: Normal size. No mass. Gallbladder: Unremarkable Spleen: Unremarkable Pancreas: Unremarkable Adrenals: Unremarkable Kidneys: No stone or hydronephrosis Bladder: Unremarkable Reproductive Organs: Intrauterine device within the uterus. Bowel: Hiatal hernia. There is a tubular structure in the right lower quadrant of the abdomen which measures 1.0 cm in diameter and is with surrounding inflammatory stranding. There is hyperdensity near its base which measures 6 mm. Lymph nodes: No significant lymphadenopathy. Vasculature: Unremarkable Peritoneum / Retroperitoneum: No free air or free fluid. Bones: Unremarkable Soft tissues: Fat containing umbilical hernia CT/Abdomen/Pelvis W IV Cont ONLY IMPRESSION: Acute uncomplicated appendicitis, with probable appendicolith at its base. Jonathan mmend Surgical consultation. [place] Alert: The critical findings in the findings and impression above were relayed directl y by me by telephone to Patrick Maki on 11/17/2024 at 7:09 pm with readback verification. Reading Location: [id number]
[2024-11-17 18:10] LABS: AST(SGOT) 26 U/L (<=31); Alanine Aminotransfer ALT/SGPT 13 U/L (<=34); Albumin, Serum 4.5 g/dL (3.5-5.0); Alkaline Phosphatase 143 U/L (35-104); Anion Gap 11 (5-15); BUN 15 mg/dL (4-19); BUN/Creat Ratio 17.4 RATIO (10-20); Calcium,Total 10.2 mg/dL (7.6-11.0); Carbon Dioxide 25.6 mmol/L (21.0-32.0); Chloride 104 mmol/L (98-108); Estimated Creatinine Clearance 93.44 ml/min (50-250); Globulin 3.3 g/dL (2.2-4.2); Glucose 117 mg/dL (70-99); Potassium 4.2 mmol/L (3.3-5.1)
[2024-11-17 18:14] LABS: Color, Urine Yellow (Yellow); Glucose, Dipstick Normal (Normal); Ketone-Dipstick Negative (Negative); Leukocyte Esterase-Dipstick 25 /ul (Negative); Nitrite-Dipstick Negative (Negative); Occult Blood-Urine 150 /ul (Negative); Protein-Dipstick 15 mg/dl (Negative); Specific Gravity, Urine 1.015 (1.002-1.030); Urine Bilirubin Dipstick Negative (Negative)
[2024-11-17 18:22] LABS: Mucous, Urine RARE /hpf (<or=2+); Red Blood Cells-Urine 0-5 SEEN /hpf (0-5); Squamous Epithelial Cells - UA 0-5 SEEN /hpf (5-10)
[2024-11-17] MEDS: Piperacil/Tazobactam 4.5 GM in 0.9% Normal Saline (100mL MB+) 100 ML IV (19:59)
--- NOTE | 2024-11-17 20:10 | PCM.HP.STD ---
HPI - General General Date of Admission: 11/17/24 Chief Complaint: Acute onset right lower quadrant pain HPI Narrative PRATIBHA PADILLA, is a 54 F who presents to [facility] with complaints of acute onset right lower quadrant pain that began last evening. She initially blamed this on some diarrhea she had?knowing her general intolerance to this food group. Yet, when the pain persisted and was accompanied by significant nausea she decided to seek further evaluation. She denies any associated chills or abnormal bowel activity. She does complain of a headache presently. She has no recent sick contacts. Patient's ER workup notable for biochemistries that show significant leukocytosis of 18.[address] of the abdomen pelvis demonstrates evidence of acute uncomplicated appendicitis with an appendicolith at the appendiceal base measuring 0.6 cm. Patient has a past medical history notable for Cricket's/hypothyroidism. Past surgical history inclusive of hiatal hernia repair with Cleopatra fundoplication and tubal ligation. FOR[facility]LY [facility] Medical History Wears glasses Alcohol use Thyroid disease Migraine headache History of IBS Gastric reflux Non-smoker Umbilical hernia Hiatal hernia GERD (gastroesophageal reflux disease) Contraceptive management Diarrhea Contact with and (suspected) exposure to other viral communicable diseases URI (upper respiratory infection) Snapping hip syndrome Labral tear of left hip joint Hip flexor tendinitis Single thyroid nodule child Ectopic SOB (shortness of breath) Anemia Arthritis Home Medications ?Medication ?Instructions ?Recorded ?Last Taken ?Type levonorgestrel (Mirena) 1 device intrauterine ONCE 06/10/22 Unknown History gabapentin 300 mg capsule 300 mg PO QHS 30 days #90 caps 09/23/23 Unknown Rx thyroid (pork) 30 mg tablet 30 mg PO DAILY 11/17/24 Unknown History ([place] Thyroid) Allergy/AdvReac Type Severity Reaction Status Date / Time No Known Allergies Allergy Verified 11/17/24 16:53 Family History Sister Thyroid disorder Multiple sclerosis Father Multiple sclerosis Mother Rheumatoid arthritis Other Diabetes Hypertension Surgical History Status post laparoscopic Cleopatra fundoplication Hx of laparoscopy History of tubal ligation Social History household members: spouse housing: house Smoking Status: Never smoker alcohol intake: never substance use type: does not use caffeine: Yes what type of physical activity do you participate in: other details: crossfit frequency: 1-2 times per week seatbelt use: always do you feel safe at home: Yes additional social history: [facility] ER registration - Francois Vital Signs Vital Signs Vital Signs: 11/17/24 16:51 Temperature 96.7 F L Temperature Source Temporal Pulse Rate 86 Respiratory Rate 16 Blood Pressure 157/97 H Blood Pressure Mean 117 Pulse Ox 100 Oxygen Delivery Method Room Air Weight Weight: 217 lb 8 oz Body Mass Index (BMI) 34.0 Physical Exam Const alert and oriented x3 Constitutional Narrative: Appears in mild discomfort General Appearance: cooperative Resp normal respiratory effort GI GI Narrative: Obese, nondistended, soft, tender to palpation with positive Rovsing and significant focal tenderness over McBurney's point. Positive obturator sign. Negative psoas sign. Results Lab / Micro Data 11/17/24 17:40 11/17/24 17:40 Labs: Laboratory Results - last 24 hr 11/17/24 17:40: WBC 18.9 H, RBC 3.90 L, Hgb 11.9 L, Hct 36.2 L, MCV 92.8, MCH 30.5, MCHC 32.9, RDW Std Deviation 47.8 H, RDW Coeff of Rody 14.0, Plt Count 313, MPV 10.5, Immature Gran % (Auto) 0.400, Neut % (Auto) 89.1 H, Lymph % (Auto) 5.1 L, Mclean % (Auto) 4.9, Eos % (Auto) 0.1, Baso % (Auto) 0.4, Absolute Neuts (auto) 16.9 H, Absolute Lymphs (auto) 0.97, Nucleated RBC % 0, Sodium 141, Potassium 4.2, Chloride 104, Carbon Dioxide 25.6, Anion Gap 11, BUN 15, Creatinine 0.84, Estim Creat Clear Calc 93.44, Est GFR (MDRD) Non-Af 83, BUN/Creatinine Ratio 17.4, Glucose 117 H, Calcium 10.2, Total Bilirubin 0.51, AST 26, ALT 13, Alkaline Phosphatase 143 H, Total Protein 7.8, Albumin 4.5, Globulin 3.3, Albumin/Globulin Ratio 1.3, Serum , Qual NEGATIVE 11/17/24 18:05: Urine Color Yellow, Urine Clarity Clear, Urine pH 6.0, Ur Specific [place] 1.015, Urine Protein 15 H, Urine Glucose (UA) Normal, Urine Ketones Negative, Urine Occult Blood 150 H, Urine Nitrite Negative, Urine Bilirubin Negative, Urine Urobilinogen Normal, Ur Leukocyte Esterase 25 H, Urine RBC 0-5 SEEN, Urine WBC 0-5 SEEN, Ur Squamous Epith Cells 0-5 SEEN, Urine Bacteria RARE, Urine Mucus RARE Imaging Radiology Impression Abdomen/Pelvis CT 11/17/24 18:07 IMPRESSION: Acute uncomplicated appendicitis, with probable appendicolith at its base. Recommend Surgical consultation. Hendry Alert: The critical findings in the findings and impression above were relayed directly by me by telephone to Patrick Maki on 11/17/2024 at 7:09 pm with readback verification. Reading Location: [id number] Assessment & Plan Assessment/Plan (1) Acute appendicitis: PLAN: Patient is a 54 female who presents with a 24-hour history of progressive acute?onset right lower quadrant pain with associated nausea where ER workup is consistent with a diagnosis of acute uncomplicated appendicitis. Patient's exam is further confirmatory. I provided recommendation for surgical appendectomy and stated presence of patient's appendicolith signifies a high risk of failure of antibiotic only management should that have been considered. I then proceeded to describe laparoscopic appendectomy. Patient and her were fully receptive. Following the operation patient to be admitted to observational stay in the hospital given the late hour. She has been empirically dosed with IV Zosyn. Anesthesia and call team have been notified. Tramaine Santos MD General Surgery Endocrine Surgery Pager: [facility] [address] [place] [address], [facility], [address] [place] [address] Office: [phone] Charges/Coding Visit Charges Inpatient E&M: 59267 Init Hosp L2
--- NOTE | 2024-11-17 21:17 | PRE.ANES_ITS ---
ASA Classification* ASA Classification ASA Classification: 2 and E (Patient has an acute abdomen. She is 5 hours NPO. Consider full stomach.) Assessment & Plan Anesthesia* Anesthesia Assessment Anesthesia Assessment: Discussed sedation and/or anesthesia options, risks, benefits, and alternatives with patient/parents/legal guardian/POA. Questions invited. The patient/parents/legal guardian/POA seems to understand and agrees to proceed with anesthesia plan. Reviewed the physical assessment, medical history, allergy history and patient home medications list prior to surgery/procedure/anesthetic and documented any changes. Performed airway and anesthesia risk assessments. Anesthesia Type Anesthesia Type: General History Source History Obtained from:: Patient and Chart Anesthesia Focused Assessment* Temperature: 98.7 F Pulse Rate: 78 Blood Pressure: 134/93 Respiratory Rate: 18 Pulse Ox: 99 Oxygen Delivery Method: Room Air Airway Assessment Mouth opens: >3 cm Mallampati Score: IV Teeth Condition: Missing (Patient has a couple missing molars. Rest are tight) and Upper (Patient has a bridge at tooth #10.) Neck Range of motion (ROM): Full ROM Labs Anesthesia Preop lab: CBC WBC, (4.4-11.0) 18.9 K/mm3 H Today, 17:40 RBC, (4.2-5.4) 3.90 M/mm3 L Today, 17:40 Hgb, (12.0-15.0) 11.9 g/dL L Today, 17:40 Hct, (37-47) 36.2 % L Today, 17:40 Plt Count, (150-450) 313 K/mm3 Today, 17:40 CHEMISTRY Potassium, (3.3-5.1) 4.2 mmol/L Today, 17:40 Sodium, (133-145) 141 mmol/L Today, 17:40 Magnesium, (1.5-2.2) 2.0 mg/dL 05/11/24, 05:30 BUN, (4-19) 15 mg/dL Today, 17:40 Creatinine, (0.70-1.20) 0.84 mg/dL Today, 17:40 Glucose, (70-99) 117 mg/dL H Today, 17:40 TSH, (0.358-3.740) 2.630 uIU/mL 12/29/23, 12:14 COAG PT, (11.7-14.9) 12.2 SECONDS 05/11/24, 05:30 Pre-Assessment Diagnosis/Proposed Procedure Planned Operative Procedure(s): Laparoscopic appendectomy Anesthesia History Anesthesia History - food order expediter: Anesthesia History - food order expediter Hx Hospitalization No 12/28/23 11:34 Any Problems With Anesthesia No 11/17/24 20:12 Cholinesterase deficiency No 12/28/23 11:34 You/Your Family Experience No 11/17/24 20:12 fever (hyperthermia) with Relationship Recent Exposure to Contagious No 11/17/24 20:12 Disease Does patient have nerve No 11/17/24 20:12 stimulator Patient instructed to have No 11/17/24 20:12 device shut off --Does patient have Pacemaker or ICD? When Was Last Pacemaker Check QUESTION #4 FULL TEXT: You/Your Family Experience fever (hyperthermia) with Anesthesia Last Oral Intake Last Oral intake: Last Oral Intake NPO since Meds taken in AM with sips of water? Meds patient instructed to take am of surgery Any additional information?: Yes NPO since: 16:00 (Patient is holding crackers at 4 PM.) PONV PONV - food order expediter: PONV - food order expediter Female HX of Motion Sickness HX of N/V After Surgery Non-Smoker Duration of Surgery greater than 60 minutes Number of Risk Factors PONV Score Height & Weight Height & Weight: Anesthesia: Height & Weight Height 5 ft 7 in 11/17/24 20:12 Weight: 98.656 kg 11/17/24 20:12 Body Mass Index (BMI) 34.0 11/17/24 20:12 Respiratory Assessment Respiratory Assessment - food order expediter: Respiratory Tract Infection Hx - food order expediter Hx Respiratory Tract Infection No 11/17/24 20:12 STOP Sleep Apnea STOP Sleep Apnea - food order expediter: STOP Sleep Apnea - food order expediter Hx Hypertension No 11/17/24 20:12 Hx Sleep Apnea No 11/17/24 20:12 CPAP BIPAP Do you snore loudly (louder No 11/17/24 20:12 than talking or can be heard Do you often feel tired/ Yes 11/17/24 20:12 fatigued/ sleepy during daytime? Has anyone observed you stop No 11/17/24 20:12 breathing during sleep? STOP Results Negative 11/17/24 20:12 QUESTION #5 FULL TEXT : Do you snore loudly (louder than talking or can be heard through closed doors)? 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 Specify any problems Hx of Preganancy in last 3 Months Nurse Filling Out Transfusion & Questions: Date: Time: Patient unable to answer at this time (ie. confused, unrespo /Reproduction History /Reproductive History - food order expediter: /Reproductive Hx- food order expediter Hx Now No 11/17/24 20:12 Gestational Age (in weeks): EDC: Hx Hx Para Hx Section SAB No 11/17/24 20:12 PFSH Medical History Wears glasses Alcohol use Thyroid disease Migraine headache History of IBS Gastric reflux Non-smoker Umbilical hernia Hiatal hernia GERD (gastroesophageal reflux disease) Contraceptive management Diarrhea Contact with and (suspected) exposure to other viral communicable diseases URI (upper respiratory infection) Snapping hip syndrome Labral tear of left hip joint Hip flexor tendinitis Single thyroid nodule child Ectopic SOB (shortness of breath) Anemia Arthritis Home Medications ?Medication ?Instructions ?Recorded ?Last Taken ?Type levonorgestrel (Mirena) 1 device intrauterine ONCE 0 06/10/22 Unknown History gabapentin 300 mg capsule 300 mg PO QHS 30 days #90 ca ps 09/23/23 Unknown Rx thyroid (pork) 30 mg tablet 30 mg PO DAILY 11/17/24 Un known History ([place] Thyroid) Allergy/AdvReac Type Severity Reaction Status Date / Time No Known Allergies Allergy Verified 11/17/24 16:53 Family History Sister Thyroid disorder Multiple sclerosis Father Multiple sclerosis Mother Rheumatoid arthritis Other Diabetes Hypertension Surgical History Status post laparoscopic Cleopatra fundoplication Hx of laparoscopy History of tubal ligation Social History household members: spouse housing: house Smoking Status: Never smoker alcohol intake: never substance use type: does not use caffeine: Yes what type of physical activity do you participate in: other details: crossfit frequency: 1-2 times per week seatbelt use: always do you feel safe at home: Yes additional social history: [facility] ER registration - Francois Review of Systems (Anesthesia) ROS Narrative System reviewed and no additional complaints, except as documented.
[2024-11-17] MEDS: fentaNYL 100 MCG/2 ML Ampul 50 MCG IV (21:32)
[2024-11-17] MEDS: Lidocaine 1% (5 ml sdv) 5 ML Vial 3 ML IV (21:33)
--- NOTE | 2024-11-17 21:35 | APP_PTH ---
PATIENT: PRATIBHA PADILLA LOC: MS3 U#:[id number] AGE/SX: 54/F ROOM: MS311 RE11/17/[address]: Dr. Tramaine Santos MD : 1970 BED: 1 DIS: 11/18/2024 SPEC #: [id number] RECD: 11/19/24 10:10 STATUS: ALLEGRA JOSE ALFREDO #: [id number] LORENZO: 11/17/24 21:[address]: Tramaine Santos DEPT: SURGICAL PATHOLOGY RECD BY: Alexander Craft ENTERED: 11/19/24 11:25 SP TYPE: APPENDIX OTHR DR: Dr. Patrick Kilpatrick MD Tissues: A - Appendix, NOS Procedures: Surgery Specimen Level III HEADER OPERATION: Laparoscopic appendectomy PRE-OP DIAGNOSIS: Acute onset right lower quadrant pain TISSUE SUBMITTED: A- Appendix MICROSCOPIC DIAGNOSIS A. Appendix, laparoscopic appendectomy: * Acute appendicitis, acute serositis. * Fibrous obliteration of the distal lumen. MICROSCOPIC DESCRIPTION Slides are reviewed. GROSS DESCRIPTION A. Received in formalin labeled with the patient's name and date of . Designated as appendix is a 5.8 x 1.1 cm avila-myers appendix with marked fibrinous, serosal exudate and attached, somewhat shaggy mesoappendix. The stapled margin is inked black and shaved. Sectioning reveals diffusely congested mucosa with semisolid fecal material throughout the lumen. The distal tip is a fibrotic with focal yellow discoloration however, no definitive mass lesions are identified. Etiquette Coach sections are submitted in 2 cassettes as follows: A1: Distal tipA2: Margin, cross-sections SD 11/19/2024PT:[id number]
--- NOTE | 2024-11-17 22:23 | OP.PCM_ITS ---
Procedures Digestive 40xxx-49xxx: [id number] Laparoscopy appendectomy Operative Report (Standard) Operative Information Date of Procedure: 11/17/24 Pre-Operative Diagnosis: Acute appendicitis Post-Operative Diagnosis: Acute uncomplicated appendicitis Surgery/Procedure Performed: Laparoscopic appendectomy lawn care specialist: Yes Mathematical Physicist: Uziel Hahn Tasks completed by wheelchair van operator first responder: Opening & closing Type of Anesthesia: General/Supplemental RN Documented Start/Stop Times: Operation Date: 11/17/24 21:35 Case Time Anesthesia Start 11/17/24 09:24 Into Room 11/17/24 09:24 Procedure Start 11/17/24 21:49 Procedure End 11/17/24 22:30 Anesthesia End 11/17/24 22:52 Out of Room 11/17/24 22:52 Into Recovery 11/17/24 22:55 Out of Recovery 11/17/24 23:23 Procedure Start Time: 21:49 Procedure Stop Time: 22:30 Select all DRAINS/GRAFTS/IMPLANTS that apply: None Estimated Blood Loss: 5 Specimen collected: Yes Description of specimen(s) removed: appendix Description of surgery: After appropriate identification in the preoperative holding area, the patient was brought to the operating room and placed supine on the operating room table. Antibiotics had been preoperatively administered by emergency medicine. Patient was then induced with general endotracheal anesthetic. The abdomen was prepped and draped in usual sterile fashion. Formal timeout was conducted to confirm both the patient and the procedure. A supraumbilical incision was made and carried down to the level of the fascia which was sharply opened. After opening the peritoneum in like fashion a finger sweep was made to confirm position, and a balloon trocar was placed and pneumoperitoneum was established to 15 mmHg. Patient was positioned in Trendelenburg with the left side down. Two additional 5 mm trocars were placed in the left lower quadrant and suprapubic positions. The peritoneum was inspected and there were no signs of inadvertent injury from this Murry entry. The appendix was not immediately visualized as the terminal ileum had folded over the appendix. Gently peeling this bowel back the appendix was visualized with significant dilation and adherent exudative material but without evidence of perforation grossly. Using blunt laparoscopic dissection, a window was made in the mesoappendix adjacent to the appendiceal base. The mesoappendix was divided with application of a laparoscopic harmonic. Then the base of the appendix was sealed and amputated with the use of an Endo KENNETH stapler. The appendix was placed in an Endo Catch bag. The staple line was inspected for hemostasis. Finding this intact some of the clot was removed with the suction coal hauler tip using the differential and pressures from the peritoneal pressure to the millimeters pressure. Then the appendix was removed in the Endo Catch bag and pneumoperitoneum was then evacuated. The supraumbilical port site fascia was closed with #1 Vicryl in a [id number] fashion. The port sites were infiltrated with 30 mL local anesthetic. The skin of each port site was closed with 4-0 Monocryl in a subcu ticular fashion. Steri-Strips and OpSite dressings were applied. Patient tolerated procedure well without any apparent complications. They were awoken from general anesthetic without issue and transferred to post anesthesia care unit for ongoing recovery. Surgical Findings: ? Acutely inflamed appendix with exudative material coating the surface of the appendix but no evidence of perforation Complications Complications: No Admit VTE Documentation VTE Mechan Device Prophylaxis: SCD's
[2024-11-17] MEDS: Bupiv/Epi 0.25% 30 ML Vial (22:24)
--- NOTE | 2024-11-17 22:54 | PCM.POST.ANE ---
Anesthesia: Postop Eval I Current Vital Signs Temperature: 100.8 F Pulse Rate: 68 Blood Pressure: 123/70 Respiratory Rate: 16 Pulse Ox: 100 Oxygen Delivery Method: Nasal Cannula Oxygen Flow Rate (L/min): 2 Assessment Airway patent: Yes Spontaneous unlabored respirations: Yes Mental status: Awake and Calm nausea: No Vomiting: No Anesthesia Complication: No Fluid Hydration Crystalloid volume administer (ml): 800 Total IV fluid infused: 800 Progress Note Anesthesia document: Postop Eval 1 completed: Yes
--- NOTE | 2024-11-17 23:08 | PCM.POSTANE2 ---
Anesthesia Postop Eval I Sum Postop Eval Completion status Anesthesia document: Postop Eval 1 completed: Yes Anesthesia Postop Eval I Summary Anesthesia Postop Eval I Summary: Anesthesia Postop Eval I: Assessment Summary Airway patent Yes 11/17/24 23:01 Spontaneous unlabored Yes 11/17/24 23:01 respirations Mental status Awake,Calm 11/17/24 23:01 nausea No 11/17/24 23:01 Vomiting No 11/17/24 23:01 Anesthesia Postop Eval I: Fluid Summary Crystalloid volume administer 800 11/17/24 23:01 (ml) Colloids volume administered ( ml) Blood Product volume administered (ml) Total IV fluid infused 800 11/17/24 23:01 Anesthesia Postop Eval I: Summary Notes Anesthesia Complication No 11/17/24 23:01 Anesthesia Complication Comment: Post-operative progress note Anesthesia: Postop Eval II Evaluation Mental status: Awake and Calm Pain Level: 5 nausea: No Vomiting: No Complications Anesthesia Complication: No
[2024-11-18 01:44] VITALS: BP 122/75; PULSE 73; RESP 16; TEMP 36.9; O2SAT 94
[2024-11-18 01:46] VITALS: BP 122/75; PULSE 73; RESP 16; TEMP 36.9; O2SAT 94
[2024-11-18 03:35] VITALS: BP 121/69; PULSE 63; RESP 16; TEMP 36.6; O2SAT 93
[2024-11-18 08:03] VITALS: BP 131/71; PULSE 73; RESP 16; TEMP 36.8; O2SAT 95
--- NOTE | 2024-11-18 10:03 | PCM.DC ---
Discharge Instructions DC O2, CPAP, BIPAP needs Home O2 Discharge instructions: No Dressing / Incision Discharge Activity: May Not Drive (No driving while using narcotic pain medication) and May Shower (Postoperative day 2) May shower in (days): 1 Ice area for (Minutes): 20 Lifting Restrictions: No lifting greater than 15 pounds for 2 weeks after surgery Dressing / Incision Call your doctor if your incision/area has: Continuous Slow Oozing, Increased Pain/ Swelling, Increased Redness, Foul Smelling Discharge and Swelling at the incision site Call your doctor if you observe: Fever of 101 or Higher Remove Dressing in: 1 day (Please leave Steri-Strips intact until they fall off spontaneously or are taken off at your follow-up visit) Cleanse incision/area with: Soap & Water Follow Up Care Please Follow Up With: Tramaine Santos MD When: 7-10days postop Test Results: Test results from this visit will be discussed in further detail at your follow-up appointment, if applicable. Discharge Plan Admission Admit Date/Time: 11/17/24 22:28 Primary Reason for Your Visit: appendectomy Attending Provider: Tramaine Santos Primary Care Provider: Patrick Kilpatrick Discharge Orders/Prescriptions Prescriptions: New oxycodone 5 mg Tablet 5 mg PO Q6H PRN PRN (Reason: Pain Score 6-10) 3 Days Qty: 10 0RF Continued Mirena 21 mcg/24 hours (8 yrs) 52 mg intrauterine device 1 device intrauterine ONCE Rx Instructions: as a single dose thyroid (pork) [[place] Thyroid] 30 mg tablet 30 mg PO DAILY gabapentin 300 mg capsule 300 mg PO QHS 30 Days Qty: 90 4RF Referrals / Follow Up: Patrick Kilpatrick MD [Primary Care Provider, Family Practice] Disposition Disposition (needs filled in before D/C Order can be placed): Home, Self Care
--- NOTE | 2024-11-18 10:07 | DS.PCM_ITS ---
Providers Date of Admission: 11/17/24 Primary Care Physician: Dr. Patrick Kilpatrick MD Reason For Visit: ABD PAIN Diagnosis Discharge Diagnosis (1) Acute appendicitis: Status: Acute Code(s): K35.80 - Unspecified acute appendicitis Plan: Patient is a 54 female who presents with a 24-hour history of progressive acute?onset right lower quadrant pain with associated nausea where ER workup is consistent with a diagnosis of acute uncomplicated appendicitis. Patient's exam is further confirmatory. I provided recommendation for surgical appendectomy and stated presence of patient's appendicolith signifies a high risk of failure of antibiotic only management should that have been considered. I then proceeded to describe laparoscopic appendectomy. Patient and her were fully receptive. Following the operation patient to be admitted to observational stay in the hospital given the late hour. She has been empirically dosed with IV Zosyn. Anesthesia and call team have been notified. Tramaine Santso MD General Surgery Endocrine Surgery Pager: [facility] [address] [place] [address], [facility], [address] [place] [id number] Office: [phone] Medications at Discharge Home Medications levonorgestrel (Mirena) 1 device intrauterine ONCE 06/10/22 gabapentin 300 mg capsule 300 mg PO QHS 30 days #90 caps 09/23/23 thyroid (pork) 30 mg tablet ([place] Thyroid) 30 mg PO DAILY 11/17/24 oxycodone 5 mg tablet 5 mg PO Q6H PRN PRN Pain Score 6-10 3 days #10 tabs 11/18/24 Hospital Course Operations appendectomy Procedures None Summary of Care Provided Hospital Course: Patient 54-year-old female who presented to [facility] on 11/17/2024 with signs and symptoms of acute appendicitis. She was thus recommended surgical appendectomy and underwent laparoscopic appendectomy evening of 11/17/2024 in uncomplicated fashion. However, given the late hour she was admitted observational stay. She is reevaluated the morning of postoperative day 1 and improved clinical condition and her vitals had remained stable. Abdominal exam was reassuring and she was advanced for her diet. She tolerated this advanced without difficulty and she ultimately granted discharged home after reviewing expectation for outpatient follow-up as well as activity restrictions. Physical Exam Const alert and oriented x3 Resp normal respiratory effort GI GI Narrative: Nondistended, soft, operative dressings in place. There is a slight amount of crusted dry bloody drainage over supraumbilical port site. There is expected tenderness to palpation about the port sites. Weight / BMI Weight Weight: 217 lb 8 oz Body Mass Index (BMI) 34.0 ABG / Lab / Microbiology Data 11/17/24 17:40 11/17/24 17:40 Laboratory: Laboratory Results - last 24 hr 11/17/24 17:40: WBC 18.9 H, RBC 3.90 L, Hgb 11.9 L, Hct 36.2 L, MCV 92.8, MCH 30.5, MCHC 32.9, RDW Std Deviation 47.8 H, RDW Coeff of Rody 14.0, Plt Count 313, MPV 10.5, Immature Gran % (Auto) 0.400, Neut % (Auto) 89.1 H, Lymph % (Auto) 5.1 L, [place] % (Auto) 4.9, Eos % (Auto) 0.1, Baso % (Auto) 0.4, Absolute Neuts (auto) 16.9 H, Absolute Lymphs (auto) 0.97, Nucleated RBC % 0, Sodium 141, Potassium 4.2, Chloride 104, Carbon Dioxide 25.6, Anion Gap 11, BUN 15, Creatinine 0.84, Estim Creat Clear Calc 93.44, Est GFR (MDRD) Non-Af 83, BUN/Creatinine Ratio 17.4, Glucose 117 H, Calcium 10.2, Total Bilirubin 0.51, AST 26, ALT 13, A lkaline Phosphatase 143 H, Total Protein 7.8, Albumin 4.5, Globulin 3.3, Albumin/Globulin Ratio 1.3, Serum , Qual NEGATIVE 11/17/24 18:05: Urine Color Yellow, Urine Clarity Clear, Urine pH 6.0, Ur Specific [place] 1.015, Urine Protein 15 H, Urine Glucose (UA) Normal, Urine Ketones Negative, Urine Occult Blood 150 H, Urine Nitrite Negative, Urine Bilirubin Negative, Urine Urobilinogen Normal, Ur Leukocyte Esterase 25 H, Urine RBC 0-5 SEEN, Urine WBC 0-5 SEEN, Ur Squamous Epith Cells 0-5 SEEN, Urine Bacteria RARE, Urine Mucus RARE Radiography Diagnostic Testing: Radiology Impression Abdomen/Pelvis CT 11/17/24 18:07 IMPRESSION: Acute uncomplicated appendicitis, with probable appendicolith at its base. Recommend Surgical consultation. [place] Alert: The critical findings in the findings and impression above were relayed directly by me by telephone to Patrick Maki on 11/17/2024 at 7:09 pm with readback verification. Reading Location: [facility] D/C Instructions May shower in (days): 1 Ice area for (Minutes): 20 Call your doctor if your incision/area has: Continuous Slow Oozing, Increased Pain/ Swelling, Increased Redness, Foul Smelling Discharge and Swelling at the incision site Call your doctor if you observe: Fever of 101 or Higher Cleanse incision/area with: Soap & Water DC O2, CPAP, BIPAP Needs Home O2 Discharge instructions: No Please Follow Up With: Tramaine Santos MD When: 7-10days postop Meaningful Use Info Meaningful Use Meaningful Use Diagnoses (Choose all that apply): None applicable Discharge Plan Admission Admit Date/Time: 11/17/24 22:28 Primary Reason for Your Visit: appendectomy Attending Provider: Tramaine Santos Primary Care Provider: Patrick Kilpatrick Discharge Orders/Prescriptions Prescriptions: New oxycodone 5 mg Tablet 5 mg PO Q6H PRN PRN (Reason: Pain Score 6-10) 3 Days Qty: 10 0RF Continued Mirena 21 mcg/24 hours (8 yrs) 52 mg intrauterine device 1 device intrauterine ONCE Rx Instructions: as a single dose thyroid (pork) [[place] Thyroid] 30 mg tablet 30 mg PO DAILY gabapentin 300 mg capsule 300 mg PO QHS 30 Days Qty: 90 4RF Referrals / Follow Up: Patrick Kilpatrick MD [Primary Care Provider, Family Practice] Disposition Disposition (needs filled in before D/C Order can be placed): Home, Self Care Charges/Coding Visit Charges Inpatient E&M: 34471 Disch Hosp
[2024-11-18] MEDS: FLU VACCINE 2025-26(6MOS UP) 45 MCG/0.5 ML SYRINGE IM (10:11)
[2024-11-18 13:15] VITALS: BP 129/78; PULSE 65; RESP 16; TEMP 37.2; O2SAT 96
== END 2024-11-18 13:35 | disposition home or self-care (01) | DRG 399 ==
LOC: ED 19:40 → SDC 20:19 → MS3 20:20 → SDC 22:33 → MS3 22:33
PROVIDERS: Admitting Provider Surgery; Emergency Provider Emergency Medicine; PCP Family Medicine; Visit Provider Surgery
PROC: 0DTJ4ZZ Resection of Appendix, Percutaneous Endoscopic Approach (ICD-10-PCS; CPT 44970; principal; 2024-11-17 21:15)
DX: K35.80 Unspecified acute appendicitis (principal); D64.9 Anemia, unspecified; E06.3 Autoimmune thyroiditis; E66.9 Obesity, unspecified; K21.9 Gastro-esophageal reflux disease without esophagitis; Z68.34 Body mass index [BMI] 34.0-34.9, adult; Z79.890 Hormone replacement therapy; Z79.899 Other long term (current) drug therapy; Z87.19 Personal history of other diseases of the digestive system; Z98.890 Other specified postprocedural states
CPT/HCPCS: 74177; 80053; 81001; 84703; 85025; 88304; 99284; Q9967; A4216; J2405